=== PATIENT | female | born 1995 | race African-American/Black ===

== ENCOUNTER 2016-12-07 21:07 | Emergency (ER) | payer OTHER ==
[2016-12-07 21:34] VITALS: RESP 20
--- NOTE | 2016-12-07 21:52 | ED ---
General Adult HPI - General Chief complaint: Neck Pain/Injury Stated complaint: neck pain Time Seen by Provider: 12/07/16 21:44 Source: patient, RN notes reviewed Mode of arrival: ambulatory Limitations: no limitations - History of Present Illness Initial comments: This is a 21-year-old female who presents with left shoulder pain. Patient states she was cracking her neck yesterday with her right hand and when she rotated her head to the right she felt pain in the left collarbone. Patient denies any neck pain. Patient states the pain is worse with moving her left upper extremity. Patient denies any numbness/weakness or tingling. Patient has been taking Motrin 800 for the pain. Patient denies any recent fever, chills , shortness breath, chest pain, abdominal pain, nausea/vomiting/diarrhea, back pain, numbness, tingling, hematuria, headache, or visual changes, or any other complaints. - Related Data Previous Rx's Medication Instructions Recorded Cyclobenzaprine [Flexeril] 5 mg PO HS 3 Days 12/07/16 Allergies Allergy/AdvReac Type Severity Reaction Status Date / Time pollen extracts Allergy Swelling Verified 12/07/16 21:34 dust Allergy Swelling Uncoded 12/07/16 21:34 pet hair Allergy Anaphylaxis Uncoded 12/07/16 21:34 Review of Systems ROS Statement: Those systems with pertinent positive or pertinent negative responses have been documented in the HPI. ROS Other: All systems not noted in ROS Statement are negative. Past Medical History Past Medical History: Asthma Additional Past Medical History / Comment(s): concussion History of Any Multi-Drug Resistant Organisms: None Reported Past Surgical History: No Surgical Hx Reported Past Psychological History: Bipolar, Depression Smoking Status: Never smoker Past Alcohol Use History: None Reported Past Drug Use History: Marijuana General Exam - General Exam Comments Initial Comments: General: The patient is awake and alert, in no distress, and does not appear acutely ill. Neck: Patient has no cervical midline tenderness and no pain with rotation or flexion/extension of the neck. The neck is supple, there is no JVD. Cardiovascular: There is a regular rate and rhythm. No murmur, rub or gallop is appreciated. Respiratory: Lungs are clear to auscultation, respirations are non-labored, breath sounds are equal. No wheezes, stridor, rales, or rhonchi. Musculoskeletal: There is tenderness to palpation over the sternal and of the clavicle, there is generalized tenderness to the left shoulder. There is no erythema, swelling or ecchymosis. Patient is able to abduct and forward flex the left upper extremity but this is limited due to pain. Strength is 5/5 and Sensation intact. Radial pulses 2+ bilaterally. Capillary refill is normal at less than 2 seconds. Neurological: A&O x 3. CN II-XII intact, There are no obvious motor or sensory deficits. Coordination appears grossly intact. Speech is normal. Skin: Skin is warm and dry and no rashes or lesions are noted. Psychiatric: Normal mood and affect. Limitations: no limitations Course Vital Signs 12/07/16 12/07/16 21:32 22:31 Temperature 98.1 F 98.2 F Pulse Rate 71 78 Respiratory 20 20 Rate Blood Pressure 133/87 129/70 O2 Sat by Pulse 100 97 Oximetry Medical Decision Making - Medical Decision Making This is a 21-year-old female presents with left shoulder pain after cracking her neck yesterday. On physical exam patient has no cervical midline tenderness and no pain with rotation or flexion/extension of the neck. There is tenderness to palpation over the sternal and of the clavicle, there is generalized tenderness to the left shoulder. There is no erythema, swelling or ecchymosis. Patient is able to abduct and forward flex the left upper extremity but this is limited due to pain. Strength is 5/5 and Sensation intact. Radial pulses 2+ bilaterally. Capillary refill is normal at less than 2 seconds. An x-ray of the left shoulder was done and reviewed showing: Negative left shoulder exam. Reported by Dr. Ellis. I discussed the results with patient. I discussed that the entire sternal end of the clavicle was not visualized on the shoulder x-ray. Patient was offered a clavicular x- ray at this time but patient refused. I discussed that this is most likely a muscle strain. I discussed continuation of Motrin and Tylenol. I discussed the patient will be given a prescription for Flexeril. I discussed sedation effects. I discussed heating pads. Patient was given oral Motrin in the EC. I discussed return parameters. Discussed that patient should follow up with PCP in one to 2 days or return to the [facility] for any worsening symptoms or for any further concerns. Patient was receptive to this plan and patient will be discharged home. Disposition Clinical Impression: Muscle strain Disposition: HOME SELF-CARE Instructions: Cervical Strain (ED) Additional Instructions: Please continue Motrin and Tylenol as needed for pain. Please use heating pads to the area. Please use Flexeril as prescribed. Please do not drink alcohol or drive with taking Flexeril as a community drowsy.Please use medication as discussed. Please follow-up with family doctor in the next 2 days of symptoms have not improved. Please return to emergency room if the symptoms increase or worsen or for any other concerns. Prescriptions: Cyclobenzaprine [Flexeril] 5 mg PO HS 3 Days Referrals: None,Stated [Primary Care Provider] - 1-2 days Suri Vera MD [STAFF PHYSICIAN] - 1-2 days Dashawn Melgoza MD [STAFF PHYSICIAN] - 1-2 days Time of Disposition: 22:15
[2016-12-07] MEDS ORDERED: IBUPROFEN 800 MG TAB PO STA (21:56)
--- NOTE | 2016-12-07 22:05 | XR ---
EXAMINATION TYPE: XR shoulder complete LT DATE OF EXAM: 12/07/2016 10:02 PM COMPARISON: NONE HISTORY: Shoulder pain TECHNIQUE: 3 views FINDINGS: I see no fracture nor dislocation. Soft tissues appear normal. There are no pathologic calc ifications. IMPRESSION: Negative left shoulder exam.
[2016-12-07 22:32] VITALS: BP 129/70; PULSE 78; TEMP 98.2
== END 2016-12-07 22:32 | disposition home or self-care (01) ==
LOC: EC 21:07
DX: S46.912A Strain of unspecified muscle, fascia and tendon at shoulder and upper arm level, left arm, initial encounter (principal); X58.XXXA Exposure to other specified factors, initial encounter; J30.81 Allergic rhinitis due to animal (cat) (dog) hair and dander; J30.1 Allergic rhinitis due to pollen; J30.89 Other allergic rhinitis
CPT/HCPCS: 99283

== ENCOUNTER 2017-01-11 11:25 | Emergency (ER) | payer OTHER ==
[2017-01-11 11:36] VITALS: RESP 18
[2017-01-11] MEDS ORDERED: SODIUM CHLORIDE 0.9% 1,000 ML IV STA ×2 (12:08)
[2017-01-11] MEDS ORDERED: METOCLOPRAMIDE 5 MG/ML 2 ML VIAL IVP STA (12:08)
[2017-01-11 12:36] LABS: Basophils % (A) 1 %; CH 27.6; CHCM 31.7; Eosinophils # (A) 0.2 k/uL (0-0.7); Eosinophils % (A) 3 %; HCT 38.6 % (34.0-46.0); HDW 2.32; HGB 12.1 gm/dL (11.4-16.0); Luc # (Auto) 0.16; Luc % (Auto) 2; Lymphocytes # (A) 2.5 k/uL (1.0-4.8); Lymphocytes % (A) 36 %; MCH 27.5 pg (25.0-35.0); MCHC 31.4 g/dL (31.0-37.0); MCV 87.4 fL (80.0-100.0); Mean Platelet Volume 7.2; Monocytes # (A) 0.2 k/uL (0-1.0); Monocytes % (A) 3 %; Neutrophils # (A) 3.7 k/uL (1.3-7.7); Neutrophils % (A) 55 %; RBC 4.42 m/uL (3.80-5.40); RDW 14.8 % (11.5-15.5); WBC 6.8 k/uL (3.8-10.6); WBC (Perox) 6.99
[2017-01-11 12:47] LABS: ALT 26 U/L (9-52); AST 16 U/L (14-36); Alkaline Phosphatase 77 U/L (38-126); Amylase 52 U/L (30-110); Anion Gap 11 mmol/L; Blood Urea Nitrogen 14 mg/dL (7-17); Calcium 9.8 mg/dL (8.4-10.2); Carbon Dioxide 25 mmol/L (22-30); Chloride 104 mmol/L (98-107); Glucose 101 mg/dL (74-99); Non-African American GFR(MDRD) >60 (>60 ml/min/1.73 sqM); Potassium 4.7 mmol/L (3.5-5.1); Sodium 140 mmol/L (137-145); Total Bilirubin 0.3 mg/dL (0.2-1.3); Total Protein 7.4 g/dL (6.3-8.2)
[2017-01-11 13:10] LABS: Appearance,Urine Clear (Clear); Bacteria,Urine Rare /hpf; Bilirubin,Urine Negative (Negative); Glucose,Urine (UA) Negative (Negative); Ketones,Urine Negative (Negative); Leukocyte Esterase,Urine Moderate (Negative); Mucus,Urine Rare /hpf; Nitrite,Urine Negative (Negative); Particle Count 3345; Protein,Urine Negative (Negative); RBC,Urine 1 /hpf (0-5); Specific Gravity,Urine 1.023 (1.001-1.035); Squamous Epithelial Cell,Urine 2 /hpf (0-4); UA Billing (MACRO vs. MICRO) MICRO; Urobilinogen,Urine <2.0 mg/dL (<2.0); WBC,Urine 2 /hpf (0-5)
[2017-01-11] MEDS ORDERED: ACETAMINOPHEN TAB 500 MG TAB PO STA (13:14)
--- NOTE | 2017-01-11 13:24 | ED ---
General Adult HPI - General Chief complaint: Recheck/Abnormal Lab/Rx Stated complaint: female gu/allergic reaction, vomiting Time Seen by Provider: 01/11/17 12:03 Source: patient Mode of arrival: ambulatory Limitations: no limitations - History of Present Illness Initial comments: This 21-year-old Afro-Dominican female presents with the complaint of nausea and vomiting which is been present for last 3 days. She denies any known fever but does present with a temperature of 100.6. She does complain of some vaginal irritation for the past couple of days. She denies any actual vaginal discharge. She is sexually active. She is unsure if she is . She relates that she was checked for some sexually transmitted diseases somewhat recently. She has had intercourse since and is unsure if she could have a STD. She denies any abdominal pain or pelvic pain. She denies any chest pain or shortness of breath. She denies any nausea vomiting diarrhea or constipation. No other complaints or modifying factors. - Related Data Home Medications Medication Instructions Recorded Confirmed Citalopram Hydrobromide 20 mg PO DAILY 01/11/17 01/11/17 Previous Rx's Medication Instructions Recorded Doxycycline Hyclate [Vibramycin] 100 mg PO BID #28 cap 01/11/17 Fluconazole [Diflucan] 150 mg PO ONCE #2 tab 01/11/17 Ondansetron [Zofran ODT] 8 mg PO Q8HR PRN #12 tab 01/11/17 metroNIDAZOLE [Flagyl] 500 mg PO BID #28 tab 01/11/17 Allergies Allergy/AdvReac Type Severity Reaction Status Date / Time pollen extracts Allergy Swelling Verified 01/11/17 11:52 dust Allergy Swelling Uncoded 01/11/17 11:32 pet hair Allergy Anaphylaxis Uncoded 01/11/17 11:32 Review of Systems ROS Statement: Those systems with pertinent positive or pertinent negative responses have been documented in the HPI. ROS Other: All systems not noted in ROS Statement are negative. Past Medical History Past Medical History: Asthma Additional Past Medical History / Comment(s): concussion History of Any Multi-Drug Resistant Organisms: None Reported Past Surgical History: No Surgical Hx Reported Past Psychological History: Bipolar, Depression Smoking Status: Never smoker Past Alcohol Use History: None Reported Past Drug Use History: Marijuana General Exam - General Exam Comments Initial Comments: GENERAL: The patient is well nourished and well hydrated. VITAL SIGNS: Heart rate, blood pressure, respiratory rate reviewed as recorded in nurse's notes. EYES: Pupils are round and reactive. Extraocular movements are intact. No conjunctival / lid redness or swelling. ENT: No external evidence of injury, swelling, or ecchymosis. Airway is patent. Throat is clear. NECK: Nontender. No swelling or evidence of injury. No subcutaneous emphysema. Trachea is midline. No thyroid mass. HEART: Regular rate and rhythm. Good peripheral pulses. LUNGS/CHEST: Breath sounds clear and equal bilaterally. No rales, rhonchi, or wheezes. No ecchymosis, subcutaneous emphysema, or tenderness. ABDOMEN: Abdomen soft without tenderness. No palpable masses or organomegaly. No peritoneal signs. No abdominal wall swelling or ecchymosis. EXTREMITIES: No extremity tenderness. Normal muscle tone and function. No thoracolumbar tenderness. NEUROLOGIC: Sensation is grossly intact. Cranial nerve exam reveals face is symmetrical, tongue is midline, speech is clear. SKIN: No abrasions or ecchymosis is noted. No induration or masses noted. PSYCHIATRIC: Alert and oriented. Appropriate behavior and judgment. Pelvic exam: There is a mild clear discharge noted. There is no perineal lesions. There is possible mild tenderness to the uterus and adnexa. There is a negative chandelier sign. Limitations: no limitations Course Vital Signs 01/11/17 11:32 Temperature 100.6 F H Pulse Rate 79 Respiratory 18 Rate Blood Pressure 115/72 O2 Sat by Pulse 97 Oximetry Medical Decision Making - Medical Decision Making The patient was seen and examined. All diagnostics were reviewed. She receives IV fluid hydration as well as some Reglan. She is feeling improved on recheck. Pelvic exam was completed and cultures are taken and are pending. The urine is negative. The remainder of labs are essentially within normal limits. The urine does show some yeast so the possibility of a yeast vaginitis is possible. The possibility of a pelvic inflammatory disease is possible as well. It is felt as though she would benefit from treatment in this regard. She is given 250 mg Rocephin IV. - Lab Data Result diagrams: 01/11/17 12:18 01/11/17 12:18 Lab Results 01/11/17 01/11/17 01/11/17 Range/Units 12:18 12:18 13:00 WBC 6.8 (3.8-10.6) k/uL RBC 4.42 (3.80-5.40) m/uL Hgb 12.1 (11.4-16.0) gm/dL Hct 38.6 (34.0-46.0) % MCV 87.4 (80.0-100.0) fL MCH 27.5 (25.0-35.0) pg MCHC 31.4 (31.0-37.0) g/dL RDW 14.8 (11.5-15.5) % Plt Count 269 (150-450) k/uL Neutrophils % 55 % Lymphocytes % 36 % Monocytes % 3 % Eosinophils % 3 % Basophils % 1 % Neutrophils # 3.7 (1.3-7.7) k/uL Lymphocytes # 2.5 (1.0-4.8) k/uL Monocytes # 0.2 (0-1.0) k/uL Eosinophils # 0.2 (0-0.7) k/uL Basophils # 0.0 (0-0.2) k/uL Sodium 140 (137-145) mmol/L Potassium 4.7 (3.5-5.1) mmol/L Chloride 104 (98-107) mmol/L Carbon Dioxide 25 (22-30) mmol/L Anion Gap 11 mmol/L BUN 14 (7-17) mg/dL Creatinine 0.90 (0.52-1.04) mg/dL Est GFR (MDRD) Af Amer >60 (>60 ml/min/1.73 sqM) Est GFR (MDRD) Non-Af >60 (>60 ml/min/1.73 sqM) Glucose 101 H (74-99) mg/dL Calcium 9.8 (8.4-10.2) mg/dL Total Bilirubin 0.3 (0.2-1.3) mg/dL AST 16 (14-36) U/L ALT 26 (9-52) U/L Alkaline Phosphatase 77 (38-126) U/L Total Protein 7.4 (6.3-8.2) g/dL Albumin 4.1 (3.5-5.0) g/dL Amylase 52 (30-110) U/L Lipase 95 (23-300) U/L Urine Color Urine Appearance (Clear) Urine pH (5.0-8.0) Ur Specific [place] (1.001-1.035) Urine Protein (Negative) Urine Glucose (UA) (Negative) Urine Ketones (Negative) Urine Blood (Negative) Urine Nitrite (Negative) Urine Bilirubin (Negative) Urine Urobilinogen (<2.0) mg/dL Ur Leukocyte Esterase (Negative) Urine RBC (0-5) /hpf Urine WBC (0-5) /hpf Ur Squamous Epith Cells (0-4) /hpf Urine Bacteria (None) /hpf Urine Mucus (None) /hpf Urine Yeast (Budding) (None) /hpf Urine HCG, Qual Not Detected (Not Detectd) 01/11/17 Range/Units 13:00 WBC (3.8-10.6) k/uL RBC (3.80-5.40) m/uL Hgb (11.4-16.0) gm/dL Hct (34.0-46.0) % MCV (80.0-100.0) fL MCH (25.0-35.0) pg MCHC (31.0-37.0) g/dL RDW (11.5-15.5) % Plt Count (150-450) k/uL Neutrophils % % Lymphocytes % % Monocytes % % Eosinophils % % Basophils % % Neutrophils # (1.3-7.7) k/uL Lymphocytes # (1.0-4.8) k/uL Monocytes # (0-1.0) k/uL Eosinophils # (0-0.7) k/uL Basophils # (0-0.2) k/uL Sodium (137-145) mmol/L Potassium (3.5-5.1) mmol/L Chloride (98-107) mmol/L Carbon Dioxide (22-30) mmol/L Anion Gap mmol/L BUN (7-17) mg/dL Creatinine (0.52-1.04) mg/dL Est GFR (MDRD) Af Amer (>60 ml/min/1.73 sqM) Est GFR (MDRD) Non-Af (>60 ml/min/1.73 sqM) Glucose (74-99) mg/dL Calcium (8.4-10.2) mg/dL Total Bilirubin (0.2-1.3) mg/dL AST (14-36) U/L ALT (9-52) U/L Alkaline Phosphatase (38-126) U/L Total Protein (6.3-8.2) g/dL Albumin (3.5-5.0) g/dL Amylase (30-110) U/L Lipase (23-300) U/L Urine Color Yellow Urine Appearance Clear (Clear) Urine pH 6.0 (5.0-8.0) Ur Specific [place] 1.023 (1.001-1.035) Urine Protein Negative (Negative) Urine Glucose (UA) Negative (Negative) Urine Ketones Negative (Negative) Urine Blood Negative (Negative) Urine Nitrite Negative (Negative) Urine Bilirubin Negative (Negative) Urine Urobilinogen <2.0 (<2.0) mg/dL Ur Leukocyte Esterase Moderate H (Negative) Urine RBC 1 (0-5) /hpf Urine WBC 2 (0-5) /hpf Ur Squamous Epith Cells 2 (0-4) /hpf Urine Bacteria Rare H (None) /hpf Urine Mucus Rare H (None) /hpf Urine Yeast (Budding) Rare H (None) /hpf Urine HCG, Qual (Not Detectd) Disposition Clinical Impression: Vaginal irritation, Nausea and vomiting, Fever, Pelvic inflammatory disease Disposition: HOME SELF-CARE Condition: Good Instructions: Vaginitis (ED), Acute Nausea and Vomiting (ED), Fever in Adults ( ED) Additional Instructions: Please follow-up with your pelvic exam cultures in approximately 3 days with your primary doctor. Prescriptions: Doxycycline Hyclate [Vibramycin] 100 mg PO BID #28 cap Fluconazole [Diflucan] 150 mg PO ONCE #2 tab Ondansetron [Zofran ODT] 8 mg PO Q8HR PRN #12 tab PRN Reason: Nausea metroNIDAZOLE [Flagyl] 500 mg PO BID #28 tab Referrals: None,Stated [Primary Care Provider] - 01/14/17 Time of Disposition: 13:36
[2017-01-11 14:04] VITALS: BP 100/75; PULSE 75; TEMP 98
== END 2017-01-11 14:04 | disposition home or self-care (01) ==
LOC: EC 11:25
DX: N73.9 Female pelvic inflammatory disease, unspecified (principal); J30.1 Allergic rhinitis due to pollen; J30.89 Other allergic rhinitis; J30.81 Allergic rhinitis due to animal (cat) (dog) hair and dander; F32.9 Major depressive disorder, single episode, unspecified; Z79.899 Other long term (current) drug therapy
CPT/HCPCS: 99283; 96365; 96375; 96361; 36415; 80053; 87591; 87491; 82150; 83690; 85025; 81001; 81025; 87808; J2765; J0696

== ENCOUNTER → 2017-02-04 | Outpatient (CLI) | payer OTHER ==
[2017-02-04 19:02] LABS: Appearance,Urine Clear (Clear); Bilirubin,Urine Negative (Negative); Glucose,Urine (UA) Negative (Negative); Ketones,Urine Negative (Negative); Leukocyte Esterase,Urine Negative (Negative); Nitrite,Urine Negative (Negative); PH, Urine 5.5 (5.0-8.0); Protein,Urine Negative (Negative); Specific Gravity,Urine 1.018 (1.001-1.035); UA Billing (MACRO vs. MICRO) CHEM; Urobilinogen,Urine <2.0 mg/dL (<2.0)
--- NOTE | 2017-02-05 08:22 | WWHP ---
DATE OF SERVICE: 02/04/2017 CHIEF COMPLAINT: Patient is here for her routine gynecologic exam. HPI: This is a 21-year-old G1, P0-0-1-0 with an LMP of 01/20/2017. She states she would like to get and has been not using anything for control for approximately 2 years. The patient was on Depo-Provera until mid-year in 2014. She was amenorrheic while she was on Depo-Provera as well as for the next 6 months after her last injection. The patient states her periods have been very regular after that until last month when she was about a week late. Her test last month was negative. PAST MEDICAL HISTORY: Anemia, asthma, and depression. MEDICATIONS: 1. Ventolin HFA Inhaler p.r.n. 2. Celexa 20 mg daily. 3. vitamins daily. ALLERGIES: No known drug allergies. PAST SURGICAL HISTORY: Voluntary termination of 2011. Past OB history: Voluntary termination of 2011 and she states she was about 3 months . 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 She does have a history of Chlamydia and was treated in 2015. She has no other history of STDs. SOCIAL HISTORY: She denies tobacco and alcohol use. She states she has used marijuana in the past but this was infrequent. She denies any other drug use. She has been with her current boyfriend since 2010 and does not live with him. She has had two other sexual partners in her lifetime. She attends [employer] and works at [employer]. FAMILY HISTORY: Grandmother and great grandfather had heart disease. Grandmother had diabetes and several cousins have diabetes. Mother has schizophrenia and is an alcoholic, sister had some type of nasal cancer. REVIEW OF SYSTEMS: She believes she has gained about 30 pounds over the last year and states this may be related to her depression. She denies respiratory or cardiac problems. GI: She has had frequent bowel movements since eating at a [place] restaurant a couple of weeks ago. She has bowel movements up to 3 to 4 times per day. PHYSICAL EXAM: Blood pressure 117/58. Height 5 feet 4 inches. Weight 278 pounds. Temperature 97.9, pulse 81. This a well-developed, heavyset Black female who is alert and oriented x3 in no acute distress. HEENT is within normal limits. NECK: Supple without mass or thyromegaly. CHEST AND LUNGS: Clear to auscultation. HEART: Regular rate and rhythm. Breasts are without mass or discharge. Axillary exam is negative for adenopathy. BACK: Negative for CVA tenderness. ABDOMEN: Obese, soft, nontender, without palpable masses. PELVIC EXAM: Normal external genitalia. Cervix and vagina appear normal. There is no unusual discharge. There is no cervical motion tenderness. The uterus is midposition, nongravid size and nontender but there is some mid pelvic tenderness in the area of the bladder or just above the bladder. There are no palpable adnexal masses or tenderness. Rectal exam was deferred. EXTREMITIES: Nontender. IMPRESSION: 1. A 21-year-old female who would like to become who has been off of Depo-Provera for approximately 2 years without actively trying to prevent since then. 2. The patient may not have been able to get for many months because of the Depo-Provera injection. 3. Mild mid pelvic tenderness, which was not consistently elicited on examination. There are no pelvic masses and no cervical motion tenderness. I doubt pelvic inflammatory disease. Differential diagnosis will also include urinary tract infection and gastrointestinal tract tenderness given that she has had more frequent bowel movements recently. PLAN: 1. Pap smear was performed. 2. Self-breast examination was discussed. 3. GC and Chlamydia testing from the cervix has been obtained. 4. UA with C&S has been obtained. 5. The patient will be scheduled for pelvic ultrasound. 6. I have recommended that she continue a daily multivitamin with folic acid. 7. I have discussed with the patient, how Depo-Provera is a long acting control method and that some people cannot get for up to 1 to 1-1/2 years after discontinuing Depo-Provera. She will continue to attempt and if she is unsuccessful in the next six months or so, consider referral for infertility testing. 8. She will also return in one year.
== END | disposition home or self-care (01) ==
LOC: WWCWWP 12:54
PROVIDERS: ATTEND Obstetrics & Gynecology
DX: Z11.3 Encounter for screening for infections with a predominantly sexual mode of transmission (principal); R10.2 Pelvic and perineal pain
CPT/HCPCS: 81003; 87086; 87491; 87591

== ENCOUNTER 2017-03-04 09:06 | Emergency (ER) | payer OTHER ==
[2017-03-04] MEDS ORDERED: IBUPROFEN 600 MG TAB PO STA (09:42)
[2017-03-04] MEDS ORDERED: DEXAMETHASONE SOD PHOSPHATE 10 MG/ML 1 ML VIAL IM STA (09:42)
[2017-03-04] MEDS ORDERED: AMOXICILLIN 500MG STARTER PACK 3 CAP BTL PO STA (09:42)
[2017-03-04] MEDS ORDERED: ACETAMINOPHEN TAB 500 MG TAB PO STA (09:42)
--- NOTE | 2017-03-04 09:59 | ED ---
General Adult HPI - General Chief complaint: ENT Stated complaint: throat pain Time Seen by Provider: 03/04/17 09:18 Source: patient, RN notes reviewed Mode of arrival: ambulatory Limitations: no limitations - History of Present Illness Initial comments: Patient is a 21-year-old female who presents emergency room today with chief complaint of sore throat. She does admit that symptoms started 4 days ago. She does admit that this morning has become more painful when she swallows. She states she has been able tolerate her saliva. She does admit that she's tried Tylenol Motrin but did not take anything today. she admits that she has seen some white patches the back of her throat. She denies any other complaints or symptoms at this time. Patient denies any recent shortness of breath, chest pain, back pain, abdominal pain, nausea or vomiting, numbness or tingling, dysuria or hematuria, constipation or diarrhea, headaches or visual changes, or any other complaints. - Related Data Home Medications Medication Instructions Recorded Confirmed Citalopram Hydrobromide 20 mg PO HS 01/11/17 03/04/17 [Citalopram HBr] Hab-Yqen-[id number] Acid 1 cap PO HS 03/04/17 03/04/17 [-U Capsule (formulary)] Previous Rx's Medication Instructions Recorded Amoxicillin 500 mg PO Q8H 10 Days 03/04/17 Ibuprofen [Motrin] 600 mg PO Q6HR PRN #40 day 03/04/17 Allergies Allergy/AdvReac Type Severity Reaction Status Date / Time chocolate flavor Allergy Unknown Verified 03/04/17 09:33 pollen extracts Allergy Swelling Verified 03/04/17 09:13 dust Allergy Swelling Uncoded 03/04/17 09:13 pet hair Allergy Anaphylaxis Uncoded 03/04/17 09:13 Review of Systems ROS Statement: Those systems with pertinent positive or pertinent negative responses have been documented in the HPI. ROS Other: All systems not noted in ROS Statement are negative. Past Medical History Past Medical History: Asthma Additional Past Medical History / Comment(s): concussion History of Any Multi-Drug Resistant Organisms: None Reported Past Surgical History: No Surgical Hx Reported Past Psychological History: Bipolar, Depression Smoking Status: Never smoker Past Alcohol Use History: None Reported Past Drug Use History: None Reported General Exam - General Exam Comments Initial Comments: General: The patient is awake and alert, in no distress, and does not appear acutely ill. Eye: Pupils are equal, round and reactive to light, extra-ocular movements are intact. No nystagmus. There is normal conjunctiva bilaterally. No signs of icterus. Ears, nose, mouth and throat: There are moist mucous membranes and no oral lesions. patient does have positive exudate. 2+ tonsils. Uvula midline. No swelling appreciated greater on one side than the next. No sign for an abscess. Patient tolerating secretions and swallows without difficulty. Neck: The neck is supple, there is no tenderness or JVD. Cardiovascular: There is a regular rate and rhythm. No murmur, rub or gallop is appreciated. Respiratory: Lungs are clear to auscultation, respirations are non-labored, breath sounds are equal. No wheezes, stridor, rales, or rhonchi. Gastrointestinal: Soft, non-distended, non-tender abdomen without masses or organomegaly noted. There is no rebound or guarding present. No CVA tenderness. Bowel sounds are unremarkable. Musculoskeletal: Normal ROM, no tenderness. Strength 5/5. Sensation intact. Pulses equal bilaterally 2+. Neurological: A&O x 3. CN II-XII intact, There are no obvious motor or sensory deficits. Coordination appears grossly intact. Speech is normal. Skin: Skin is warm and dry and no rashes or lesions are noted. Psychiatric: Cooperative, appropriate mood & affect, normal judgment. Limitations: no limitations Course Vital Signs 03/04/17 09:09 Temperature 100.1 F H Pulse Rate 96 Respiratory 22 Rate Blood Pressure 136/73 O2 Sat by Pulse 98 Oximetry Medical Decision Making - Medical Decision Making Patient's uvula midline. Swallows without difficulty. Has tolerated by mouth Tylenol Motrin. Given shot of Decadron here in the emergency room. Case discussed with attending physician Dr. Tijerina. This time patient will be started on antibiotics cover for strep infection advised close follow-up return if any symptoms increase or worsen. She states understanding and is in agreement. Disposition Clinical Impression: Acute pharyngitis Disposition: HOME SELF-CARE Condition: Good Instructions: Strep Throat (ED) Additional Instructions: Please use medication as discussed. Please follow-up with family doctor in the next 2 days of symptoms have not improved. Please return to emergency room if the symptoms increase or worsen or for any other concerns. Prescriptions: Amoxicillin 500 mg PO Q8H 10 Days Ibuprofen [Motrin] 600 mg PO Q6HR PRN #40 day PRN Reason: Pain Referrals: Nonstaff,Physician [REFERRING] - 1-2 days Time of Disposition: 10:51
[2017-03-04 11:17] VITALS: BP 130/70; PULSE 64; RESP 16; TEMP 101.4
== END 2017-03-04 11:16 | disposition home or self-care (01) ==
LOC: EC 09:06
DX: J02.9 Acute pharyngitis, unspecified (principal); F32.9 Major depressive disorder, single episode, unspecified; Z91.048 Other nonmedicinal substance allergy status; Z91.018 Allergy to other foods; Z79.899 Other long term (current) drug therapy
CPT/HCPCS: 99282; 96372; J1100

== ENCOUNTER → 2017-04-02 | Outpatient (CLI) | payer OTHER ==
--- NOTE | 2017-04-02 17:14 | US ---
EXAMINATION TYPE: US transvaginal DATE OF EXAM: 04/02/2017 COMPARISON: NONE CLINICAL HISTORY: R10.2 Pelvic Pain, R68.89 Abc Pelvic Exam. TECHNIQUE: Transvaginal (TV) Date of LMP: unknown EXAM MEASUREMENTS: Uterus: 6.5 x 3.2 x 4.6 cm Endometrial Stripe: 0.6 cm Right Ovary: 2.8 x 2.1 x 2.0 cm Left Ovary: 3.0 x 1.6 x 1.6 cm Patient unable to fill her bladder. 1. Uterus: small amount of free fluid adjacent to uterus , uterus wnl 2. Endometrium: unknown LMP, otherwise wnl 3. Right Ovary: wnl 4. Left Ovary: wnl 5. Bilateral Adnexa: wnl 6. Posterior cul-de-sac: wnl IMPRESSION: NORMAL PELVIC ULTRASOUND.
== END | disposition home or self-care (01) ==
LOC: RADUSWWP 15:45
PROVIDERS: ATTEND Obstetrics & Gynecology
DX: R10.2 Pelvic and perineal pain (principal); R68.89 Other general symptoms and signs
CPT/HCPCS: 76830

== ENCOUNTER 2017-11-11 15:42 | Emergency (ER) | payer SELFPAY ==
[2017-11-11] MEDS ORDERED: diphenhydrAMINE 50 MG/ML 1 ML VIAL IVP STA (18:42)
[2017-11-11] MEDS ORDERED: SODIUM CHLORIDE 0.9% 1,000 ML IV ONE (18:42)
[2017-11-11] MEDS ORDERED: METOCLOPRAMIDE 5 MG/ML 2 ML VIAL IVP STA (18:42)
--- NOTE | 2017-11-11 18:43 | ED ---
General Adult HPI - General Chief complaint: Nausea/Vomiting/Diarrhea Stated complaint: vomiting-early Time Seen by Provider: 11/11/17 18:25 Source: patient Mode of arrival: ambulatory Limitations: no limitations - History of Present Illness Initial comments: Patient is a female, 22 years of age who presents with a chief complaint of nausea and vomiting. The patient is 7 weeks and states that she has been nauseated throughout the duration of her . She was sent home from work today secondary to vomiting. The patient cannot identify any inciting incidences other than the . There are no aggravating or alleviating factors. Timing is intermittent. Patient was asked to be evaluated by her human resources department. - Related Data Home Medications Medication Instructions Recorded Confirmed Qca-Fkfm-Qqila Acid 1 cap PO HS 03/04/17 11/11/17 [-U Capsule (formulary)] Previous Rx's Medication Instructions Recorded Metoclopramide HCl [Reglan] 10 mg PO TID #30 tablet 11/11/17 Allergies Allergy/AdvReac Type Severity Reaction Status Date / Time chocolate flavor Allergy Unknown Verified 11/11/17 19:10 pollen extracts Allergy Swelling Verified 11/11/17 19:10 dust Allergy Swelling Uncoded 11/11/17 16:21 pet hair Allergy Anaphylaxis Uncoded 11/11/17 16:21 Review of Systems ROS Statement: Those systems with pertinent positive or pertinent negative responses have been documented in the HPI. ROS Other: All systems not noted in ROS Statement are negative. Gastrointestinal: Reports: nausea, vomiting Past Medical History Past Medical History: Asthma Additional Past Medical History / Comment(s): concussion History of Any Multi-Drug Resistant Organisms: None Reported Past Surgical History: No Surgical Hx Reported Past Psychological History: Bipolar, Depression Smoking Status: Never smoker Past Alcohol Use History: None Reported Past Drug Use History: None Reported General Exam Limitations: no limitations General appearance: alert, in no apparent distress Head exam: Present: atraumatic, normocephalic Eye exam: Present: normal appearance ENT exam: Present: mucous membranes moist Respiratory exam: Present: normal lung sounds bilaterally. Absent: respiratory distress Cardiovascular Exam: Present: regular rate, normal rhythm GI/Abdominal exam: Present: soft. Absent: distended, tenderness Rectal exam: Present: deferred Neurological exam: Present: alert, oriented X3 Psychiatric exam: Present: normal affect, normal mood Skin exam: Present: warm, dry, intact Course Vital Signs 11/11/17 16:18 Temperature 98.9 F Pulse Rate 88 Respiratory 20 Rate Blood Pressure 117/56 O2 Sat by Pulse 100 Oximetry Medical Decision Making - Medical Decision Making Patient is a 22-year-old female presents with a chief complaint of nausea and vomiting. The patient is 7 weeks . Patient states that this is been relatively constant for her over the length of her and today she was sent home from work. Patient denies any other symptoms including fever, chills , shortness of breath, chest pain, dysuria, vaginal bleeding, or vaginal discharge. Patient will be evaluated with basic labs and a quantitative beta hCG. Lab evaluation of this patient is unremarkable. HCG is just over 28,000. 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 Patient is feeling improved after a dose of Reglan and Benadryl. She will be prescribed Reglan for outpatient use and instructed to follow up with primary care and OB. She is instructed to return to the emergency department 12-24 hours her symptoms are worse or new symptoms arise. At this time, I do not recommend any work restrictions for the patient, unless she is unable to control her nausea. 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 - Lab Data Result diagrams: 11/11/17 18:49 11/11/17 18:49 Lab Results 11/11/17 11/11/17 11/11/17 Range/Units 18:49 18:49 18:49 WBC 7.7 (3.8-10.6) k/uL RBC 4.04 (3.80-5.40) m/uL Hgb 10.7 L (11.4-16.0) gm/dL Hct 33.9 L (34.0-46.0) % MCV 84.0 (80.0-100.0) fL MCH 26.5 (25.0-35.0) pg MCHC 31.6 (31.0-37.0) g/dL RDW 14.5 (11.5-15.5) % Plt Count 324 (150-450) k/uL Neutrophils % 61 % Lymphocytes % 33 % Monocytes % 3 % Eosinophils % 2 % Basophils % 0 % Neutrophils # 4.7 (1.3-7.7) k/uL Lymphocytes # 2.5 (1.0-4.8) k/uL Monocytes # 0.2 (0-1.0) k/uL Eosinophils # 0.2 (0-0.7) k/uL Basophils # 0.0 (0-0.2) k/uL Sodium 139 (137-145) mmol/L Potassium 4.0 (3.5-5.1) mmol/L Chloride 103 (98-107) mmol/L Carbon Dioxide 26 (22-30) mmol/L Anion Gap 10 mmol/L BUN 8 (7-17) mg/dL Creatinine 0.65 (0.52-1.04) mg/dL Est GFR (MDRD) Af Amer >60 (>60 ml/min/1.73 sqM) Est GFR (MDRD) Non-Af >60 (>60 ml/min/1.73 sqM) Glucose 103 H (74-99) mg/dL Calcium 9.6 (8.4-10.2) mg/dL HCG, Quant 31092.0 mIU/mL Urine Color Yellow Urine Appearance Clear (Clear) Urine pH 7.0 (5.0-8.0) Ur Specific Cooks 1.025 (1.001-1.035) Urine Protein Trace H (Negative) Urine Glucose (UA) Negative (Negative) Urine Ketones 1+ H (Negative) Urine Blood Negative (Negative) Urine Nitrite Negative (Negative) Urine Bilirubin Negative (Negative) Urine Urobilinogen 2.0 (<2.0) mg/dL Ur Leukocyte Esterase Negative (Negative) Disposition Clinical Impression: Hyperemesis gravidarum Disposition: HOME SELF-CARE Condition: Good Instructions: Acute Nausea and Vomiting (ED) Referrals: Suri Vera MD [STAFF PHYSICIAN] - 1-2 days Alejo Damon DO [Doctor of Osteopathic Medicine] - 1-2 days Catherine Dyer DO [Doctor of Osteopathic Medicine] - 1-2 days
[2017-11-11 18:59] LABS: Basophils % (A) 0 %; Eosinophils # (A) 0.2 k/uL (0-0.7); Eosinophils % (A) 2 %; HCT 33.9 % (34.0-46.0); HGB 10.7 gm/dL (11.4-16.0); Lymphocytes # (A) 2.5 k/uL (1.0-4.8); Lymphocytes % (A) 33 %; MCH 26.5 pg (25.0-35.0); MCHC 31.6 g/dL (31.0-37.0); Mean Platelet Volume 7.2; Monocytes # (A) 0.2 k/uL (0-1.0); Monocytes % (A) 3 %; Neutrophils # (A) 4.7 k/uL (1.3-7.7); Neutrophils % (A) 61 %; Platelet Count 324 k/uL (150-450); RBC 4.04 m/uL (3.80-5.40); RDW 14.5 % (11.5-15.5); WBC 7.7 k/uL (3.8-10.6)
[2017-11-11 19:01] LABS: Appearance,Urine Clear (Clear); Bilirubin,Urine Negative (Negative); Blood,Urine Negative (Negative); Color,Urine Yellow; Glucose,Urine (UA) Negative (Negative); Ketones,Urine 1+ (Negative); Leukocyte Esterase,Urine Negative (Negative); Nitrite,Urine Negative (Negative); Protein,Urine Trace (Negative); Specific Gravity,Urine 1.025 (1.001-1.035)
[2017-11-11 19:10] LABS: Anion Gap 10 mmol/L; Blood Urea Nitrogen 8 mg/dL (7-17); Calcium 9.6 mg/dL (8.4-10.2); Carbon Dioxide 26 mmol/L (22-30); Chloride 103 mmol/L (98-107); Glucose 103 mg/dL (74-99); Sodium 139 mmol/L (137-145)
[2017-11-11 20:56] VITALS: BP 123/76; PULSE 77; RESP 17; TEMP 97.9
== END 2017-11-11 20:57 | disposition home or self-care (01) ==
LOC: EC 15:42
DX: O21.0 Mild hyperemesis gravidarum (principal); Z3A.01 Less than 8 weeks gestation of pregnancy; Z91.048 Other nonmedicinal substance allergy status; Z79.899 Other long term (current) drug therapy
CPT/HCPCS: 99284; 96374; 96361; 36415; 80048; 85025; 81003; 84702; J2765

== ENCOUNTER 2018-01-07 08:52 | Emergency (ER) | payer OTHER ==
[2018-01-07 09:02] VITALS: RESP 18
--- NOTE | 2018-01-07 09:10 | ED ---
Upper Extremity HPI - General Chief Complaint: Extremity Injury, Upper Stated Complaint: Hand Lac Time Seen by Provider: 01/07/18 08:59 Source: patient, EMS, RN notes reviewed, old records reviewed Mode of arrival: EMS Limitations: no limitations - History of Present Illness Initial Comments: 20-year-old female presents or instruments due to complaint of left hand pain. She reports that she punched him year. She complains of a small laceration over the fifth digit. She states that she has swelling over her hand. She states that she cannot fully make a fist with her hand due to the pain. She denies any numbness or tingling to the hand or finger distal to the injury. She denies any other symptoms including chest pain, shortness of breath, nausea , vomiting, fevers, chills, abdominal pain, dysuria, hematuria, diarrhea. - Related Data Home Medications Medication Instructions Recorded Confirmed Fxk-Cvbl-Bsfuh Acid 1 cap PO DAILY 03/04/17 01/07/18 [-U Capsule (formulary)] Previous Rx's Medication Instructions Recorded Cephalexin [Keflex] 500 mg PO Q8HR #21 cap 01/07/18 Allergies Allergy/AdvReac Type Severity Reaction Status Date / Time chocolate flavor Allergy Unknown Verified 01/07/18 09:03 pollen extracts Allergy Swelling Verified 01/07/18 09:03 dust Allergy Swelling Uncoded 01/07/18 09:01 pet hair Allergy Anaphylaxis Uncoded 01/07/18 09:01 Review of Systems ROS Statement: Those systems with pertinent positive or pertinent negative responses have been documented in the HPI. ROS Other: All systems not noted in ROS Statement are negative. Past Medical History Past Medical History: Asthma Additional Past Medical History / Comment(s): concussion History of Any Multi-Drug Resistant Organisms: None Reported Past Surgical History: No Surgical Hx Reported Past Psychological History: Bipolar, Depression Smoking Status: Never smoker Past Alcohol Use History: None Reported Past Drug Use History: None Reported General Exam - General Exam Comments Initial Comments: This is a 22-year-old female. Alert and oriented. No distress. Limitations: no limitations General appearance: alert, in no apparent distress Head exam: Present: atraumatic, normocephalic, normal inspection Eye exam: Present: normal appearance, PERRL, EOMI. Absent: scleral icterus, conjunctival injection, periorbital swelling ENT exam: Present: normal exam, mucous membranes moist Neck exam: Present: normal inspection. Absent: tenderness, meningismus, lymphadenopathy Respiratory exam: Present: normal lung sounds bilaterally. Absent: respiratory distress, wheezes, rales, rhonchi, stridor Cardiovascular Exam: Present: regular rate, normal rhythm, normal heart sounds. Absent: systolic murmur, diastolic murmur, rubs, gallop, clicks GI/Abdominal exam: Present: soft, normal bowel sounds. Absent: distended, tenderness, guarding, rebound, rigid Extremities exam: Present: normal inspection, full ROM, normal capillary refill. Absent: tenderness, pedal edema, joint swelling, calf tenderness Left Elbow exam: Present: normal inspection, full ROM Forearm Wrist exam: Present: normal inspection, full ROM Hand Wrist exam: Present: tenderness (Patient has tenderness over the fifth met carpal.), swelling. Absent: normal inspection (Patient has a 17 m laceration over the dorsal aspect of the distal fifth metacarpal.), full ROM (Patient is unable to make a total fist to do the pain.) Course Vital Signs 01/07/18 08:59 Temperature 97.9 F Pulse Rate 78 Respiratory 18 Rate Blood Pressure 135/73 O2 Sat by Pulse 100 Oximetry Procedures - Incision & Drainage Site: hand (left hand at fifth metacarpal) Size (cm): 1 Anesthetic Used: lidocaine 1% Amount (mLs): 3 I&D Cleaning Method: Iodine Sterile Field Used?: Yes Scalpel Used: #11 Packing: Other (removed a small piece of glass ) Patient Tolerated Procedure: well Medical Decision Making - Medical Decision Making 22-year-old female presents emergency department today chief complaint of left hand laceration and swelling after she punched a mirror. Patient reports pain with range of motion of her fifth finger. She did have some swelling noted. Initial x-ray shows evidence of soft tissue foreign body. Sinusitis the area of the small laceration and was able to retrieve base small piece of glass. We re-x-rayed the hand after I removed the glass and there is no evidence of continued foreign body. She will have a small puncture wound at the site where the glass entered. I discussed we will keep this open and not suture it to make sure that there is no closing of the site for possibility of infection. We 'll start patient on a few days of Keflex due to the soft tissue injury. Discussed following up with primary care provider orthopedic if she has any other issues. Discussed warm soaks of the hand. Discussed keeping the wound covered. Patient are any reports that her tetanus is up-to-date. - Radiology Data Radiology results: report reviewed Anesthesias pressure dislocation. Soft tissue foreign body under the presumed site of laceration injury. Re-x-ray of the hand shows no evidence of soft tissue foreign body. Disposition Clinical Impression: Foreign body hand, Hand laceration Disposition: HOME SELF-CARE Condition: Good Instructions: Soft Tissue Foreign Body (ED) Additional Instructions: Patient advised to do warm soaks of the hand frequently. Allow the wound close on its own. Return to emergency department if any alarming signs or symptoms occur. Prescriptions: Cephalexin [Keflex] 500 mg PO Q8HR #21 cap Referrals: None,Stated [Primary Care Provider] - 1-2 days Suri Vera MD [STAFF PHYSICIAN] - 1-2 days Time of Disposition: 11:12
--- NOTE | 2018-01-07 09:38 | XR ---
EXAMINATION TYPE: XR hand complete LT DATE OF EXAM: 01/07/2018 CLINICAL HISTORY: Punch picture frame injury with pain swelling and laceration.. TECHNIQUE: Frontal, lateral and oblique images of the left hand are obtained. COMPARISON: None. FINDINGS: There is no acute fracture/dislocation evident in the left hand. The joint spaces in the l eft hand appear within normal limits. There are 1-2 punctate radiodense soft tissue foreign bodies ne ar region of fifth metacarpal head distal diaphysis seen on frontal and oblique images. IMPRESSION: There is no acute fracture or dislocation in the left hand. Soft tissue foreign body not ed presumed at site of laceration injury.
--- NOTE | 2018-01-07 11:11 | XR ---
EXAMINATION TYPE: XR hand complete LT DATE OF EXAM: 01/07/2018 CLINICAL HISTORY: Foreign body removal from laceration injury. TECHNIQUE: Frontal, lateral and oblique images of the left hand are obtained. COMPARISON: Left hand x-ray earlier today. FINDINGS: Overlying bandage material is seen. There is no acute fracture/dislocation evident in the l eft hand. The joint spaces in the left hand appear within normal limits. There is interval removal of punctate densities or soft tissue foreign body near level of fifth metacarpal head. IMPRESSION: Interval successful removal of soft tissue foreign bodies.
[2018-01-07 11:25] VITALS: BP 126/82; PULSE 84; TEMP 97.1
== END 2018-01-07 11:25 | disposition home or self-care (01) ==
LOC: EC 08:52
DX: O9A.219 Injury, poisoning and certain other consequences of external causes complicating pregnancy, unspecified trimester (principal); S61.422A Laceration with foreign body of left hand, initial encounter; Z91.018 Allergy to other foods; Z91.048 Other nonmedicinal substance allergy status; W25.XXXA Contact with sharp glass, initial encounter; W45.8XXA Other foreign body or object entering through skin, initial encounter; Z3A.00 Weeks of gestation of pregnancy not specified
CPT/HCPCS: 12041; 99284

== ENCOUNTER 2018-01-20 13:57 | Emergency (ER) | payer OTHER ==
[2018-01-20 14:12] VITALS: BP 127/85; PULSE 98; RESP 20; TEMP 98.3
--- NOTE | 2018-01-20 15:44 | ED ---
General Adult HPI - General Chief complaint: Extremity Problem,Nontraumatic Stated complaint: leg pain Time Seen by Provider: 01/20/18 14:44 Source: patient, RN notes reviewed Mode of arrival: ambulatory Limitations: no limitations - History of Present Illness Initial comments: 22-year-old female presents to the emergency department for a chief complaint of left lower back pain x 1 day. Patient states she has chronic low back pain. Patient states the pain is now radiating from her low back down into her left hip. Patient denies any bladder or bowel changes. Patient states she has full range of motion of her back. 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 She states it feels better when she is laying down and relaxing. Patient denies any numbness in the left lower extremity. She denies any pain in the calf or knee. Patient is currently 17 weeks . She has no other complaints at this time. Patient denies shortness of breath, chest pain, abdominal pain, nausea or vomiting. - Related Data Home Medications Medication Instructions Recorded Confirmed Bjg-Nevn-Bzpij Acid 1 cap PO DAILY 03/04/17 01/07/18 [-U Capsule (formulary)] Previous Rx's Medication Instructions Recorded Cephalexin [Keflex] 500 mg PO Q8HR #21 cap 01/07/18 Allergies Allergy/AdvReac Type Severity Reaction Status Date / Time chocolate flavor Allergy Unknown Verified 01/20/18 14:12 pollen extracts Allergy Swelling Verified 01/20/18 14:12 dust Allergy Swelling Uncoded 01/20/18 14:12 pet hair Allergy Anaphylaxis Uncoded 01/20/18 14:12 Review of Systems ROS Statement: Those systems with pertinent positive or pertinent negative responses have been documented in the HPI. ROS Other: All systems not noted in ROS Statement are negative. Past Medical History Past Medical History: Asthma Additional Past Medical History / Comment(s): concussion History of Any Multi-Drug Resistant Organisms: None Reported Past Surgical History: No Surgical Hx Reported Past Psychological History: Bipolar, Depression Smoking Status: Never smoker Past Alcohol Use History: None Reported Past Drug Use History: None Reported General Exam Limitations: no limitations General appearance: alert, in no apparent distress Respiratory exam: Present: normal lung sounds bilaterally. Absent: respiratory distress, wheezes, rales, rhonchi, stridor Cardiovascular Exam: Present: regular rate, normal rhythm, normal heart sounds. Absent: systolic murmur, diastolic murmur, rubs, gallop, clicks Extremities exam: Present: normal inspection, full ROM (full ROM of the left lower extremity.), normal capillary refill (< 2 seconds in LLE and pedal pulse 2 + in LLE.), other. Absent: tenderness, pedal edema, joint swelling, calf tenderness (no calf tenderness, erthema, or swelling.) Back exam: Present: other (Patient has some pain with flexion of the lower back. ). Absent: tenderness (no tenderness of the vertebrae), CVA tenderness (R), CVA tenderness (L) Neurological exam: Present: alert, oriented X3, CN II-XII intact Psychiatric exam: Present: normal affect, normal mood Course Vital Signs 01/20/18 14:10 Temperature 98.3 F Pulse Rate 98 Respiratory 20 Rate Blood Pressure 127/85 O2 Sat by Pulse 99 Oximetry Medical Decision Making - Medical Decision Making 22-year-old female presents to the emergency department for a chief complaint of low back pain radiating into the left leg x 1 day. Patient does have some chronic lower back pain. Patient denies any numbness or tingling in the left lower leg. Denies any bladder or bowel changes. Patient has full range of motion of the lower back but some pain with flexion of the low back. She has full range of motion of the left leg. Patient is 17 weeks therefore an x-ray of the low back was not performed. Patient likely has some sciatic pain. Patient was advised to take Tylenol and follow-up with OB. She was told specifically not to take Motrin. 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 She is to return here if she has any worsening pain or changes in bladder or bowel function. Patient is aware of this. Disposition Clinical Impression: Sciatica Disposition: HOME SELF-CARE Condition: Good Instructions: Sciatica (ED) Additional Instructions: Please take Tylenol for relief and apply warm heat or ice to the area depending on which one feels better. Do not take Motrin/Ibuprofen. Please follow-up with OB in 1-2 days. Return to the emergency department if you have any worsening symptoms or bladder/bowel changes. Is patient prescribed a controlled substance at d/c from ED?: No Referrals: None,Stated [Primary Care Provider] - 1-2 days Time of Disposition: 15:43
== END 2018-01-20 15:51 | disposition home or self-care (01) ==
LOC: EC 13:57
DX: O99.89 Other specified diseases and conditions complicating pregnancy, childbirth and the puerperium (principal); M54.32 Sciatica, left side; Z3A.17 17 weeks gestation of pregnancy; Z91.018 Allergy to other foods; Z91.048 Other nonmedicinal substance allergy status
CPT/HCPCS: 99283

== ENCOUNTER 2018-02-06 18:25 | Emergency (ER) | payer OTHER ==
[2018-02-06 18:43] VITALS: BP 128/71; PULSE 72; RESP 18; TEMP 98.8
--- NOTE | 2018-02-06 19:11 | ED ---
General Adult HPI - General Chief complaint: Nausea/Vomiting/Diarrhea Stated complaint: Vomiting Time Seen by Provider: 02/06/18 18:58 Source: patient Mode of arrival: ambulatory Limitations: no limitations - History of Present Illness Initial comments: Alicia is a 22-year-old who presents to the emergency department today for evaluation of low abdominal cramping that began this evening. Patient reports that yesterday evening she ate dinner at a [employer] food place at the mall. She reports that she woke this morning feeling very nauseated. She reports that she had multiple episodes of vomitus, she reports that her last episode of vomiting tests had streaked red blood. She believes that this is just from the force of her vomiting. Patient states that despite vomiting she's been able to drink plenty of fluids today and is trying very hard to stay hydrated. Patient reports that throughout her she has been suffering from diarrhea, she doesn't feel that it's any worse today than it has been throughout the entire . Patient states that this evening she began to feel lower abdominal cramping and she didn't feel that her baby was as active as usual so she came to the hospital to have the baby evaluated. She states that she doesn't want take any medications that aren't absolutely safe for the baby and that she feels comfortable managing the nausea on her own. He states that she believes she is fine and if it was just her she absolutely would not have come to Hospital however she wants to have her baby checked. - Related Data Home Medications Medication Instructions Recorded Confirmed Sit-Zdgj-Axnbg Acid 1 cap PO DAILY 03/04/17 01/07/18 [-U Capsule (formulary)] Allergies Allergy/AdvReac Type Severity Reaction Status Date / Time pollen extracts Allergy Swelling Verified 02/06/18 19:10 dust Allergy Swelling Uncoded 02/06/18 18:43 pet hair Allergy Anaphylaxis Uncoded 02/06/18 18:43 Review of Systems ROS Statement: Those systems with pertinent positive or pertinent negative responses have been documented in the HPI. ROS Other: All systems not noted in ROS Statement are negative. Constitutional: Denies: fever, chills Eyes: Reports: vision change (blurred vision throughout , unchanged today). Denies: eye pain ENT: Reports: throat pain Respiratory: Denies: cough, dyspnea Cardiovascular: Denies: chest pain, palpitations Endocrine: Reports: fatigue Gastrointestinal: Reports: abdominal pain, nausea, vomiting, diarrhea Genitourinary: Denies: urgency, dysuria Skin: Denies: rash, lesions Neurological: Denies: headache, weakness Psychiatric: Denies: anxiety, depression Hematological/Lymphatic: Denies: easy bleeding, easy bruising Past Medical History Past Medical History: Asthma Additional Past Medical History / Comment(s): concussion History of Any Multi-Drug Resistant Organisms: None Reported Past Surgical History: No Surgical Hx Reported Past Psychological History: Bipolar, Depression Smoking Status: Never smoker Past Alcohol Use History: None Reported Past Drug Use History: None Reported General Exam Limitations: no limitations General appearance: alert, in no apparent distress Head exam: Present: atraumatic, normocephalic Eye exam: Present: normal appearance, PERRL, EOMI ENT exam: Present: normal exam, mucous membranes moist. Absent: mucous membranes dry Neck exam: Present: normal inspection Respiratory exam: Present: normal lung sounds bilaterally. Absent: respiratory distress Cardiovascular Exam: Present: regular rate, normal rhythm GI/Abdominal exam: Present: soft, other (gravid uterus ). Absent: tenderness, guarding, rebound, rigid Rectal exam: Present: deferred Extremities exam: Present: normal inspection, normal capillary refill. Absent: pedal edema Neurological exam: Present: alert, oriented X3 Psychiatric exam: Present: normal affect, normal mood Course Vital Signs 02/06/18 18:40 Temperature 98.8 F Pulse Rate 72 Respiratory 18 Rate Blood Pressure 128/71 O2 Sat by Pulse 100 Oximetry Medical Decision Making - Medical Decision Making Patient was seen and evaluated, vital signs were reviewed, there are no Sirs criteria history was obtained from the patient At this time the patient states that she doesn't feel she needs any workup or evaluation for her nausea or vomiting, she declines any treatment. She states that she is here only to have her baby evaluated to make sure that the baby is okay because she is experiencing cramping and feels like baby may be less active than usual although she does state that the baby kicks when she sat down on the hospital gurney. The patient is currently 20 weeks and 2 days , at this time I'll transfer her to the OB floor for further evaluation Disposition Clinical Impression: Nausea vomiting and diarrhea, Abdominal cramping complicating Disposition: HOME SELF-CARE Condition: Good Instructions: Acute Nausea and Vomiting (ED) Is patient prescribed a controlled substance at d/c from ED?: No Referrals: None,Stated [Primary Care Provider] - 1-2 days Arlet Gipson MD [STAFF PHYSICIAN] - As Soon As Possible (Head to OB floor now) Time of Disposition: 19:11
== END 2018-02-06 19:25 | disposition home or self-care (01) ==
LOC: EC 18:25
DX: O21.9 Vomiting of pregnancy, unspecified (principal); O99.89 Other specified diseases and conditions complicating pregnancy, childbirth and the puerperium; R10.30 Lower abdominal pain, unspecified; R19.7 Diarrhea, unspecified; Z3A.20 20 weeks gestation of pregnancy; Z91.048 Other nonmedicinal substance allergy status; Z53.29 Procedure and treatment not carried out because of patient's decision for other reasons
CPT/HCPCS: 99283

== ENCOUNTER 2018-02-06 19:25 | Outpatient (CLI) | payer OTHER ==
[2018-02-06 20:57] VITALS: BP 109/75; PULSE 64; RESP 16; TEMP 97.7
--- NOTE | 2018-02-08 12:17 | P.MSEPDOC ---
Presenting Problems - Arrival Data Date of Arrival on Unit: 02/06/18 Time of Arrival on Unit: 19:30 Mode of Transport: Wheelchair - Complaint OB-Reason for Admission/Chief Complaint: Decreased Movement Comment: seen in EC for food poisoning, nausea vomit Medical History - Information : 2 Para: 0 Term: 0 : 0 Abortions: Spontaneous or Elective: 0 Number of Living Children: 0 - Gestational Age Gestational Age by LONG (wks/days): 19 Weeks and 1 Days Review of Systems - Review of Systems Constitutional: No problems Breast: No problems ENT: No problems Cardiovascular: No problems Respiratory: No problems Gastrointestinal: No problems Genitourinary: No problems Musculoskeletal: No problems Neurological: No problems Skin: No problems Comment: nausea, vomitting Vital Signs - Temperature Temperature: 97.7 F Temperature Source: Temporal Artery Scan - Pulse Right Brachial Pulse Rate: 64 Pulse Assessment Method: Automatic Cuff - Respirations Respiratory Rate: 16 Oxygen Delivery Method: Room Air O2 Sat by Pulse Oximetry: 98 - Blood Pressure Right Arm Blood Pressure: 109/75 Blood Pressure Mean: 86 Blood Pressure Source: Automatic Cuff Medical Screen Scoring (Pre) - Cervical Exam Dilation: 0 cm = 0 Membranes: Intact - Uterine Contractions Frequency: N/A Duration: N/A Intensity: N/A - Maternal Vital Signs Maternal Temperature: N/A Maternal Blood Pressure: N/A Signs of Preeclampsia: N/A Maternal Respirations: N/A - Pain Assessment Pain Location and Character: Head Pain Scale Used: Numeric (1 - 10) Pain Intensity: 8 Pain Description: *Acute, Aching Pain Frequency: Constant Pain Duration: 3 Pain Duration Units: Hours Pain Behavior: None Exhibited Pain Aggravating Factors: Activity Non-Pharmacological Interventions: Darkened Room - Maternal Trauma Maternal Trauma: N/A - Assessment Baseline FHR: 154 - Total Score Total Score (Pre): 0 - Level of Risk Level of Risk: Low (0-5) Physician Notification (Pre) - Physician Notified Physician Notified Date: 02/06/18 Physician Notified Time: 19:38 Spoke With: Gomez Doll Order Received: Yes (discharge if closed and thick) - Notification Comment Comment: cervix closed and thick Disposition - Disposition OB Disposition: Discharge to home, Written follow up instructions reviewed Discharge Date: 02/06/18 Discharge Time: 19:55 I agree with the RN Medical Screening Exam: Yes Risk & Benefit of care provided described in d/c instruction: Yes Diagnosis: DECREASED MOVEMENTS, SECOND TRIMESTER, UNSP
== END 2018-02-06 19:55 | disposition home or self-care (01) ==
LOC: FBPOP 19:25
PROVIDERS: ATTEND Obstetrics & Gynecology
DX: O36.8120 Decreased fetal movements, second trimester, not applicable or unspecified (principal); Z3A.19 19 weeks gestation of pregnancy
CPT/HCPCS: 99213

== ENCOUNTER 2018-02-14 18:07 | Emergency (ER) | payer OTHER ==
[2018-02-14 19:22] VITALS: RESP 18; TEMP 98
[2018-02-14] MEDS ORDERED: SODIUM CHLORIDE 0.9% 1,000 ML IV STA (19:28)
[2018-02-14] MEDS ORDERED: PYRIDOXINE 100 MG/ML 1 ML VIAL IM STA (19:33)
[2018-02-14] MEDS ORDERED: PROCHLORPERAZINE 10 MG TAB PO STA (19:35)
[2018-02-14] MEDS ORDERED: DEXTROSE 5%-0.9% NACL 1,000 ML IV ONE (19:45)
[2018-02-14 20:04] LABS: Appearance,Urine Cloudy (Clear); Bilirubin,Urine 1+ (Negative); Blood,Urine Negative (Negative); Color,Urine Dark Yellow; Glucose,Urine (UA) Negative (Negative); Ketones,Urine 4+ (Negative); Leukocyte Esterase,Urine Negative (Negative); Mucus,Urine Many /hpf; Nitrite,Urine Negative (Negative); PH, Urine 6.5 (5.0-8.0); Protein,Urine 2+ (Negative); RBC,Urine 2 /hpf (0-5); Squamous Epithelial Cell,Urine 5 /hpf (0-4); WBC,Urine 4 /hpf (0-5)
[2018-02-14 20:15] LABS: Basophils % (A) 0 %; Eosinophils # (A) 0.1 k/uL (0-0.7); Eosinophils % (A) 1 %; HCT 31.6 % (34.0-46.0); HGB 10.6 gm/dL (11.4-16.0); Lymphocytes # (A) 2.1 k/uL (1.0-4.8); Lymphocytes % (A) 29 %; MCH 27.6 pg (25.0-35.0); MCHC 33.4 g/dL (31.0-37.0); MCV 82.7 fL (80.0-100.0); Mean Platelet Volume 8.2; Monocytes # (A) 0.3 k/uL (0-1.0); Monocytes % (A) 4 %; Neutrophils # (A) 4.8 k/uL (1.3-7.7); Neutrophils % (A) 64 %; Platelet Count 260 k/uL (150-450); RBC 3.83 m/uL (3.80-5.40); RDW 15.1 % (11.5-15.5); WBC 7.5 k/uL (3.8-10.6)
[2018-02-14 20:33] LABS: ALT 43 U/L (9-52); AST 30 U/L (14-36); Alkaline Phosphatase 87 U/L (38-126); Anion Gap 14 mmol/L; Blood Urea Nitrogen 7 mg/dL (7-17); Calcium 9.7 mg/dL (8.4-10.2); Carbon Dioxide 24 mmol/L (22-30); Chloride 100 mmol/L (98-107); Glucose 82 mg/dL (74-99); Magnesium 1.9 mg/dL (1.6-2.3); Potassium 3.1 mmol/L (3.5-5.1); Sodium 138 mmol/L (137-145); Total Bilirubin 0.3 mg/dL (0.2-1.3); Total Protein 6.8 g/dL (6.3-8.2)
[2018-02-14] MEDS ORDERED: POTASSIUM CHLORIDE ER 20 MEQ TAB.ER PO STA (20:40)
[2018-02-14] MEDS ORDERED: Potassium Replacement Protocol 1 EACH MISC MISCELLANE PRN (20:40)
--- NOTE | 2018-02-14 21:42 | ED ---
General Adult HPI - General Chief complaint: Nausea/Vomiting/Diarrhea Stated complaint: Vomiting Time Seen by Provider: 02/14/18 19:11 Source: patient Mode of arrival: ambulatory Limitations: no limitations - History of Present Illness Initial comments: Patient is a 22-year-old female at 20 weeks and presents for nausea and vomiting. She was seen 2 weeks ago when she had similar symptoms and states that she continues to have nausea and vomiting but the vomiting is only there with standing. 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 She denies any diarrhea as well as fevers or chills. She denies any abdominal pain or vaginal bleeding. - Related Data Home Medications Medication Instructions Recorded Confirmed Zts-Ycdi-Upgxa Acid 1 cap PO DAILY 03/04/17 02/06/18 [-U Capsule (formulary)] Previous Rx's Medication Instructions Recorded Doxylamine Succinate/Vit B6 1 each PO HS 14 Days #28 tab.ir. 02/14/18 [Bonjesta ER 20-20 mg Tablet] Allergies Allergy/AdvReac Type Severity Reaction Status Date / Time pollen extracts Allergy Swelling Verified 02/14/18 18:14 dust Allergy Swelling Uncoded 02/14/18 18:14 pet hair Allergy Anaphylaxis Uncoded 02/14/18 18:14 Review of Systems ROS Statement: Those systems with pertinent positive or pertinent negative responses have been documented in the HPI. Constitutional: Negative for chills, fatigue and fever. HENT: Negative for congestion. Respiratory: Negative for chest tightness, shortness of breath and wheezing. Negative for cough Cardiovascular: Negative for chest pain and palpitations. Gastrointestinal: Negative for abdominal pain. Negative for abdominal distention , diarrhea, and vomiting. Positive for nausea Genitourinary: Negative for dysuria. Musculoskeletal: Negative for back pain, neck pain and neck stiffness. Skin: Negative for color change. Neurological: Negative for dizziness, speech difficulty, weakness and light- headedness. Psychiatric/Behavioral: Negative for agitation and confusion. The patient is not nervous/anxious. ROS Other: All systems not noted in ROS Statement are negative. Past Medical History Past Medical History: Asthma Additional Past Medical History / Comment(s): concussion History of Any Multi-Drug Resistant Organisms: None Reported Past Surgical History: No Surgical Hx Reported Past Psychological History: Bipolar, Depression Smoking Status: Never smoker Past Alcohol Use History: None Reported Past Drug Use History: None Reported General Exam - General Exam Comments Initial Comments: Constitutional: Pt is oriented to person, place, and time. Pt appears well- developed and well-nourished. No distress. HENT: Head: Normocephalic and atraumatic. Eyes: EOM are normal. Neck: Normal range of motion. Neck supple. Cardiovascular: Normal rate, regular rhythm, S1 normal, S2 normal and normal heart sounds. Exam reveals no gallop and no friction rub. No murmur heard. Pulmonary/Chest: Effort normal and breath sounds normal. No tachypnea and no bradypnea. No respiratory distress. No wheezes or rales noted. Abdominal: Soft. Bowel sounds are normal. Pt exhibits no shifting dullness, no distension, no pulsatile liver, no fluid wave, no abdominal bruit and no ascites. There is no tenderness. There is no rigidity, no rebound, no guarding, no tenderness at McBurney's point and negative Toledo's sign. Musculoskeletal: Normal range of motion. Neurological: Pt is alert and oriented to person, place, and time. No cranial nerve deficit. Skin: Skin is warm and dry. No rash noted. Pt is not diaphoretic. No erythema. No pallor. Psychiatric: Pt has a normal mood and affect. Pt behavior is normal. Thought content normal. Limitations: no limitations Course Vital Signs 02/14/18 02/14/18 02/14/18 18:11 19:21 20:30 Temperature 97.8 F 98.0 F Pulse Rate 90 81 67 Respiratory 20 18 18 Rate Blood Pressure 125/58 121/59 116/67 O2 Sat by Pulse 97 100 100 Oximetry 02/14/18 02/14/18 21:03 22:08 Temperature Pulse Rate 75 70 Respiratory 18 18 Rate Blood Pressure 127/76 115/59 O2 Sat by Pulse 100 100 Oximetry Medical Decision Making - Medical Decision Making Labs showed a hemoglobin was 10.6 and potassium was low at 3.1 which was replaced orally. Urinalysis was negative for infection but did show evidence of dehydration as well as 4+ ketones. Patient was given 1 L normal saline as well as 1 L of D5 tenderness and Compazine and B6. Patient did have one episode of vomiting in the emergency department. Because of this, it was advised that based on the dehydration status and intractable vomiting, patient should person observation for continued hydration. However, the patient currently declined and stated that she wanted to follow-up as an outpatient. Patient was given a prescription for Diclegis shows and instructed to follow-up in 1-2 days with OB doctor. Patient was agreeable plan - Lab Data Result diagrams: 02/14/18 20:01 02/14/18 20:01 Lab Results 02/14/18 02/14/18 02/14/18 Range/Units 19:40 20:01 20:01 WBC 7.5 (3.8-10.6) k/uL RBC 3.83 (3.80-5.40) m/uL Hgb 10.6 L (11.4-16.0) gm/dL Hct 31.6 L (34.0-46.0) % MCV 82.7 (80.0-100.0) fL MCH 27.6 (25.0-35.0) pg MCHC 33.4 (31.0-37.0) g/dL RDW 15.1 (11.5-15.5) % Plt Count 260 (150-450) k/uL Neutrophils % 64 % Lymphocytes % 29 % Monocytes % 4 % Eosinophils % 1 % Basophils % 0 % Neutrophils # 4.8 (1.3-7.7) k/uL Lymphocytes # 2.1 (1.0-4.8) k/uL Monocytes # 0.3 (0-1.0) k/uL Eosinophils # 0.1 (0-0.7) k/uL Basophils # 0.0 (0-0.2) k/uL Sodium 138 (137-145) mmol/L Potassium 3.1 L (3.5-5.1) mmol/L Chloride 100 (98-107) mmol/L Carbon Dioxide 24 (22-30) mmol/L Anion Gap 14 mmol/L BUN 7 (7-17) mg/dL Creatinine 0.53 (0.52-1.04) mg/dL Est GFR (CKD-EPI)AfAm >90 (>60 ml/min/1.73 sqM) Est GFR (CKD-EPI)NonAf >90 (>60 ml/min/1.73 sqM) Glucose 82 (74-99) mg/dL Calcium 9.7 (8.4-10.2) mg/dL Magnesium 1.9 (1.6-2.3) mg/dL Total Bilirubin 0.3 (0.2-1.3) mg/dL AST 30 (14-36) U/L ALT 43 (9-52) U/L Alkaline Phosphatase 87 (38-126) U/L Total Protein 6.8 (6.3-8.2) g/dL Albumin 4.0 (3.5-5.0) g/dL Urine Color Dark Yellow Urine Appearance Cloudy H (Clear) Urine pH 6.5 (5.0-8.0) Ur Specific [place] 1.030 (1.001-1.035) Urine Protein 2+ H (Negative) Urine Glucose (UA) Negative (Negative) Urine Ketones 4+ H (Negative) Urine Blood Negative (Negative) Urine Nitrite Negative (Negative) Urine Bilirubin 1+ H (Negative) Urine Urobilinogen 4.0 (<2.0) mg/dL Ur Leukocyte Esterase Negative (Negative) Urine RBC 2 (0-5) /hpf Urine WBC 4 (0-5) /hpf Ur Squamous Epith Cells 5 H (0-4) /hpf Urine Mucus Many H (None) /hpf Disposition Clinical Impression: Hyperemesis gravidarum Disposition: HOME SELF-CARE Condition: Good Instructions: Hyperemesis Gravidarum (ED) Prescriptions: Doxylamine Succinate/Vit B6 [Bonjesta ER 20-20 mg Tablet] 1 each PO HS 14 Days # 28 tab.ir.dr Is patient prescribed a controlled substance at d/c from ED?: No Referrals: None,Stated [Primary Care Provider] - 1-2 days Time of Disposition: 21:44
[2018-02-14 22:13] VITALS: BP 115/59; PULSE 70
== END 2018-02-14 22:14 | disposition home or self-care (01) ==
LOC: EC 18:07
DX: O21.1 Hyperemesis gravidarum with metabolic disturbance (principal); Z3A.20 20 weeks gestation of pregnancy; Z91.048 Other nonmedicinal substance allergy status; Z91.09 Other allergy status, other than to drugs and biological substances
CPT/HCPCS: 36415; 80053; 83735; 85025; 81001; 87086; 99284; 96360; 96361; 96372; S0183; J3415

== ENCOUNTER 2018-02-16 11:58 | Observation (INO) | payer OTHER ==
[2018-02-16] MEDS ORDERED: ONDANSETRON 4 MG/2 ML VIAL IM STA (12:17)
[2018-02-16] MEDS ORDERED: LACTATED RINGERS 1,000 ML IV ONE (12:30)
[2018-02-16 12:51] LABS: Basophils % (A) 0 %; Eosinophils # (A) 0.1 k/uL (0-0.7); Eosinophils % (A) 1 %; HCT 32.9 % (34.0-46.0); HGB 10.5 gm/dL (11.4-16.0); Lymphocytes # (A) 1.6 k/uL (1.0-4.8); Lymphocytes % (A) 31 %; MCH 27.1 pg (25.0-35.0); MCV 84.9 fL (80.0-100.0); Mean Platelet Volume 8.3; Monocytes # (A) 0.2 k/uL (0-1.0); Monocytes % (A) 4 %; Neutrophils # (A) 3.3 k/uL (1.3-7.7); Neutrophils % (A) 62 %; Platelet Count 230 k/uL (150-450); RBC 3.87 m/uL (3.80-5.40); RDW 15.2 % (11.5-15.5); WBC 5.3 k/uL (3.8-10.6)
[2018-02-16 13:05] LABS: ALT 44 U/L (9-52); AST 31 U/L (14-36); Albumin 3.6 g/dL (3.5-5.0); Alkaline Phosphatase 79 U/L (38-126); Anion Gap 13 mmol/L; Blood Urea Nitrogen 5 mg/dL (7-17); Calcium 9.4 mg/dL (8.4-10.2); Carbon Dioxide 25 mmol/L (22-30); Chloride 103 mmol/L (98-107); Glucose 80 mg/dL (74-99); Potassium 3.3 mmol/L (3.5-5.1); Sodium 141 mmol/L (137-145); Total Bilirubin 0.4 mg/dL (0.2-1.3); Total Protein 6.2 g/dL (6.3-8.2)
[2018-02-16] MEDS ORDERED: ACETAMINOPHEN TAB 325 MG TAB PO STA (14:20)
[2018-02-16] MEDS: LACTATED RINGERS 1,000 ML IV SCH ×3 (14:56→18:22)
[2018-02-16 15:04] LABS: Appearance,Urine Clear (Clear); Bacteria,Urine Rare /hpf; Bilirubin,Urine 1+ (Negative); Blood,Urine Negative (Negative); Color,Urine Yellow; Glucose,Urine (UA) Negative (Negative); Ketones,Urine 3+ (Negative); Leukocyte Esterase,Urine Negative (Negative); Mucus,Urine Many /hpf; Nitrite,Urine Negative (Negative); Protein,Urine 1+ (Negative); RBC,Urine 1 /hpf (0-5); Specific Gravity,Urine 1.022 (1.001-1.035); Squamous Epithelial Cell,Urine 2 /hpf (0-4); WBC,Urine 6 /hpf (0-5)
[2018-02-16] MEDS ORDERED: ONDANSETRON 4 MG/2 ML VIAL IVP PRN (17:28)
--- NOTE | 2018-02-16 17:40 | P.HPOB ---
History of Present Illness H&P Date: 02/16/18 Chief Complaint: Nausea and vomiting This is a 22-year-old female 2 para 0 at 20-4/7 weeks who presents after being seen in the office today for her routine visit for IV hydration due to nausea and vomiting. She states it started last week after her ultrasound and she went to the emergency room for IV hydration and at that time they told her that she would need to be admitted but she had to get to work so she did not consent to admission. 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 She thinks she may have eaten some bad Hebrew food and that was what started it all but it has not improved within a few days. She currently has 3+ ketones and slightly low potassium. While she's been in triage and on her second liter of fluid, she still has some vomiting and has not been able to even hold down Tylenol. She also complains of a headache and some trouble with focusing with her eyes. She does have a history of sinus issues. She will be admitted for observation and IV hydration. We will try some IV Benadryl to see if this helps with not only her sinus issue but possibly her nausea too. Obstetrical history: . History of 1 miscarriage. Review of Systems Constitutional: Denies chills, Denies fever Eyes: bilateral blurred vision Ears, nose, mouth and throat: Reports headache, Reports nasal congestion, Denies sore throat Cardiovascular: Denies chest pain, Denies shortness of breath Respiratory: Denies cough Gastrointestinal: Reports nausea, Reports vomiting, Denies abdominal pain, Denies diarrhea Genitourinary: Reports , Denies dysuria, Denies hematuria Integumentary: Denies pruritus, Denies rash Neurological: Reports weakness, Denies numbness Psychiatric: Reports depression Past Medical History Past Medical History: Asthma Additional Past Medical History / Comment(s): concussion History of Any Multi-Drug Resistant Organisms: None Reported Past Surgical History: No Surgical Hx Reported Past Psychological History: Depression Smoking Status: Never smoker Past Alcohol Use History: None Reported Past Drug Use History: None Reported Medications and Allergies Home Medications Medication Instructions Recorded Confirmed Type Sgf-Pjke-Afvvo Acid 1 cap PO DAILY 03/04/17 02/16/18 History [-U Capsule (formulary)] Allergies Allergy/AdvReac Type Severity Reaction Status Date / Time pollen extracts Allergy Swelling Verified 02/16/18 12:14 dust Allergy Swelling Uncoded 02/16/18 12:14 pet hair Allergy Anaphylaxis Uncoded 02/16/18 12:14 Exam Osteopathic Statement: *. No significant issues noted on an osteopathic structural exam other than those noted in the History and Physical/Consult. - Vital Signs Vital signs: Intake and Output 02/16/18 02/16/18 02/16/18 06:59 14:59 22:59 Other: Weight 120.656 kg Gen.: Well-developed well-nourished female in some distress due to nausea. HEENT: Within normal limits Heart: Regular rate and rhythm Lungs: Clear to auscultation bilaterally Abdomen: , nontender with positive heart tones by Doppler Extremities: Negative Homans Results Result Diagrams: 02/16/18 12:40 02/16/18 12:40 Abnormal Lab Results - Last 24 Hours (Table) 02/16/18 02/16/18 02/16/18 Range/Units 12:40 12:40 14:52 Hgb 10.5 L (11.4-16.0) gm/dL Hct 32.9 L (34.0-46.0) % Potassium 3.3 L (3.5-5.1) mmol/L BUN 5 L (7-17) mg/dL Total Protein 6.2 L (6.3-8.2) g/dL Urine Protein 1+ H (Negative) Urine Ketones 3+ H (Negative) Urine Bilirubin 1+ H (Negative) Urine WBC 6 H (0-5) /hpf Urine Bacteria Rare H (None) /hpf Urine Mucus Many H (None) /hpf Assessment and Plan (1) 20 weeks gestation of Current Visit: Yes Status: Acute Code(s): Z3A.20 - 20 WEEKS GESTATION OF SNOMED Code(s): 78067011 (2) Nausea and vomiting during prior to 22 weeks gestation Current Visit: Yes Status: Acute Code(s): O21.9 - VOMITING OF , UNSPECIFIED SNOMED Code(s): 44577801 Plan: Plan is admission as a 23 hour observation. Will continue with IV hydration. Will add IV Benadryl as needed to see if this helps improve her symptoms. Will continue with diet as tolerated. No monitoring is necessary at this time.
--- NOTE | 2018-02-16 17:47 | P.MSEPDOC ---
Presenting Problems - Arrival Data Date of Arrival on Unit: 02/16/18 Time of Arrival on Unit: 11:59 Mode of Transport: Ambulatory - Complaint Comment: pt sent from office for iv hydration and labs Medical History - Information : 2 Para: 0 Term: 0 : 0 Abortions: Spontaneous or Elective: 1 Number of Living Children: 0 Disposition - Disposition OB Disposition: Observe, Triage I agree with the RN Medical Screening Exam: Yes Risk & Benefit of care provided described in d/c instruction: Yes Diagnosis: VOMITING OF , UNSPECIFIED
[2018-02-16] MEDS: diphenhydrAMINE 50 MG/ML 1 ML VIAL IVP PRN (17:54)
[2018-02-16 18:12] VITALS: BMI 45.6
[2018-02-16] MEDS: ACETAMINOPHEN TAB 325 MG TAB PO PRN (23:51)
[2018-02-17] MEDS: LACTATED RINGERS 1,000 ML IV SCH (01:18)
--- NOTE | 2018-02-17 07:10 | P.DS ---
Providers Date of admission: 02/16/18 17:37 Expected date of discharge: 02/17/18 Attending physician: Catherine Dyer Primary care physician: Stated None - Discharge Diagnosis(es) (1) 20 weeks gestation of Current Visit: Yes Status: Acute (2) Nausea and vomiting during prior to 22 weeks gestation Current Visit: Yes Status: Acute Hospital Course: This is a 22-year-old female 2 para 0 at 20-4/7 weeks who presented with nausea and vomiting that have been going on almost a week. In triage she was noted to have 3+ ketones and could not hold anything down. She was given IV hydration and Zofran. I did admit her for overnight observation and through the night she has been able to hold some foods down along with fluids. She also did receive a dose of IV Benadryl. She did have a headache when she came in and it still is present. Tylenol did not really help her headache. She does still complain of some sinus congestion. She will see how she tolerates breakfast and then go home after breakfast. She is encouraged that she can continue to take antihistamines as needed for sinus congestion and headache. She will follow up in the office as scheduled in my she has any further problems. Procedures: IV hydration Patient Condition at Discharge: Stable Plan - Discharge Summary New Discharge Prescriptions: Continue Pcj-Ezon-Mltfq Acid [-U Capsule (formulary)] 1 cap PO DAILY Discharge Medication List Azx-Zsnu-Hbbkb Acid [-U Capsule (formulary)] 1 cap PO DAILY 03/15 [History] Follow up Appointment(s)/Referral(s): Catherine yDer DO [Doctor of Osteopathic Medicine] - 4 Weeks Activity/Diet/Wound Care/Special Instructions: Activity as tolerated. Diet as tolerated. Discharge Disposition: HOME SELF-CARE
[2018-02-17] MEDS: diphenhydrAMINE 50 MG/ML 1 ML VIAL IVP PRN (07:40)
[2018-02-17] MEDS: ACETAMINOPHEN TAB 325 MG TAB PO PRN (07:41)
[2018-02-17 09:37] VITALS: BP 106/64; PULSE 67; RESP 18; TEMP 98.4
== END 2018-02-17 13:00 | disposition home or self-care (01) ==
LOC: FBPOP 11:58 → 4FBP 17:37
PROVIDERS: ADMIT Obstetrics & Gynecology; ATTEND Obstetrics & Gynecology
DX: O21.9 Vomiting of pregnancy, unspecified (principal); O99.512 Diseases of the respiratory system complicating pregnancy, second trimester; R09.81 Nasal congestion; J45.909 Unspecified asthma, uncomplicated; O99.342 Other mental disorders complicating pregnancy, second trimester; F32.9 Major depressive disorder, single episode, unspecified; Z3A.20 20 weeks gestation of pregnancy; Z87.820 Personal history of traumatic brain injury; Z91.048 Other nonmedicinal substance allergy status
CPT/HCPCS: 96376; 96360; 96361 ×2; 96372; 96374; 80053; 85025; 81001; G0378 ×2; G0463; J1200 ×2; J2405; 59025; 96365; 96375; 99214

== ENCOUNTER 2018-05-04 16:51 | Inpatient (IN) | payer OTHER ==
--- NOTE | 2018-05-04 17:45 | US ---
EXAMINATION TYPE: US OB limited; transabdominal (TA) DATE OF EXAM: 05/04/2018 CLINICAL HISTORY: No FHT on doppler. No heart tones sent from Dr. Lomax office.Exam limitations due to body habitus. COMPARISON: None GESTATIONAL AGE / DATING No growth performed on today?s study per ordering physician SURVEY PRESENTATION: Vertex HEART RATE: No heart tones seen. BABY POSITION: Vertex. IMPRESSION: NO HEART TONES SEEN.
[2018-05-04] MEDS ORDERED: ZOLPIDEM 5 MG TAB PO PRN (18:07)
[2018-05-04] MEDS ORDERED: BUTORPHANOL 1 MG/ML 1 ML VIAL IV PRN (18:07)
[2018-05-04] MEDS ORDERED: DINOPROSTONE 10 MG INSERT.ER VAGINAL ONE (18:07)
--- NOTE | 2018-05-04 19:05 | P.HPOB ---
History of Present Illness H&P Date: 05/04/18 Chief Complaint: demise This patient is a pleasant 22-year-old 2 para 0 female estimated date of confinement 07/02/2018 estimated gestational age 31-4/7 weeks gestation who is seen by Dr. Dyer this afternoon for routine visit and was found to have a demise. Patient's care for the most part appears to be uncomplicated with the exception of some nausea or vomiting. Dr. Dyer counseled the patient in the office and plan is to proceed with induction of labor at this time. Patient denies any vaginal bleeding or leaking fluid. Review of Systems Constitutional: Denies chills, Denies fever Gastrointestinal: Reports nausea, Reports vomiting Genitourinary: Reports Menstruation: Reports amenorrhea Past Medical History Past Medical History: Asthma Additional Past Medical History / Comment(s): Hx concussion 2 yrs ago. Patient' s first was an elective . History of Any Multi-Drug Resistant Organisms: None Reported Past Surgical History: No Surgical Hx Reported Past Anesthesia/Blood Transfusion Reactions: No Reported Reaction Past Psychological History: No Psychological Hx Reported Smoking Status: Never smoker Past Alcohol Use History: None Reported Past Drug Use History: None Reported - Past Family History Mother Additional Family Medical History / Comment(s): Bipolar, Schizopphrenic, ADHD. Brother(s) Additional Family Medical History / Comment(s): Schizophrenic Medications and Allergies Home Medications Medication Instructions Recorded Confirmed Type Apq-Dofy-Umuzg Acid 1 cap PO DAILY 03/04/17 05/04/18 History [-U Capsule (formulary)] Allergies Allergy/AdvReac Type Severity Reaction Status Date / Time pollen extracts Allergy Swelling Verified 05/04/18 16:59 dust Allergy Swelling Uncoded 05/04/18 16:59 pet hair Allergy Anaphylaxis Uncoded 05/04/18 16:59 Exam Intake and Output 05/04/18 05/04/18 05/04/18 06:59 14:59 22:59 Other: Weight 125.191 kg - OBG Physical Exam Vulva: both: normal Vagina: normal moisture, no discharge Cervix: no lesion, no discharge Uterus: enlarged (Fundal height is [address] Dyer[address] Results work shows she is B positive, rubella nonreactive, hepatitis B negative , HIV nonreactive, hemoglobin was 10.8. Preliminary ultrasound report shows fetus to be 29 weeks and one sevenths days, vertex presentation, with a normal amniotic fluid index of 11.8. There is no cardiac activity. Assessment and Plan Assessment: This is a pleasant 22-year-old 2 para 0 female 31-4/7 weeks gestation with recent diagnosis of demise. Patient has discussed this with Dr. Dyer and plan is to proceed with two-stage induction of labor at this time secondary to an unfavorable cervix. I discussed this again with the patient and she wishes to proceed with Cervidil placement at this time. Patient will also need a stillborn evaluation and Dr. Dyer we will place these orders. I have answered the patient's questions to the best my abilities at this time, however she understands she needs to discuss this in more detail with Dr. Dyer tomorrow. (1) Third trimester Current Visit: Yes Status: Acute Code(s): Z34.93 - ENCNTR FOR SUPRVSN OF NORMAL PREG, UNSP, THIRD TRIMESTER SNOMED Code(s): 55606897 (2) demise, greater than 22 weeks, antepartum, single gestation Current Visit: Yes Status: Acute Code(s): O36.4XX0 - MATERNAL CARE FOR INTRAUTERINE , NOT APPLICABLE OR UNSP SNOMED Code(s): 77792841
--- NOTE | 2018-05-04 20:07 | US ---
EXAMINATION TYPE: US OB >= 14 wk fetus DATE OF EXAM: 05/04/2018 COMPARISON: None CLINICAL HISTORY: NO FHT. No heart tones; Dr. Dyer wanted growth done so rescanned patient. TECHNIQUE: Transabdominal (TA) GESTATIONAL AGE / DATING Physician Established: (31 weeks/4 days) EDC: 07/02/2018 Dates by LMP: (31 weeks/4 days) EDC: 07/02/2018 Dates by First Scan: No previous this is first scan Dates by Current Scan: (29 weeks/1 days) EDC: 07/19/2018 SURVEY IUP: Single PLACENTA: Posterior PREVIA: No Previa JOSUÉ: 11.84 cm Normal CERVICAL LENGTH (transabdominal: norm > 3.0cm): 3.6 cm BIOMETRY PRESENTATION: Vertex LIE: Longitudinal BPD: 7.31 cm 29 weeks / 2 days HC: 27.26 cm 29 weeks / 5 days AC: 26.20 cm 30 weeks / 2 days FL: 5.51 cm 29 weeks / 0 days ESTIMATED WEIGHT IN GRAMS: 1456 grams ESTIMATED WEIGHT IN LBS/OZ: 3 lbs. 3 oz. WEIGHT PERCENTAGE BASED ON ESTABLISHED DATES: 4.2% HC/AC: 1.04 cm Normal FL/AC: 21.03 cm Normal HEART RATE: No heart tones seen. IUP: Yes, but without heart tones. IMPRESSION: SINGLE IUP WITH NO CARDIAC ACTIVITY DEMONSTRATED.
[2018-05-04 21:59] VITALS: BMI 47.3
[2018-05-05] MEDS ORDERED: OXYTOCIN 20 UNITS/1000 ML NS 1,000 ML IV SCH ×2 (05:37→18:54)
[2018-05-05] MEDS: LACTATED RINGERS 1,000 ML IV SCH ×3 (05:37→13:23)
[2018-05-05] MEDS ORDERED: CARBOPROST TROMETHAMINE 250 MCG/ML 1 ML AMP IM PRN (05:37)
[2018-05-05] MEDS ORDERED: LIDOCAINE 1% 20 ML VIAL (10MG/ML) FOR IV START INTRADERMA PRN (05:37)
[2018-05-05] MEDS ORDERED: OXYTOCIN 10 UNIT/ML 1 ML VIAL IM PRN (05:37)
[2018-05-05] MEDS ORDERED: METHYLERGONOVINE 0.2 MG/ML 1 ML AMP IM PRN (05:37)
[2018-05-05] MEDS ORDERED: TERBUTALINE 1 MG/ML VIAL SQ PRN (05:37)
[2018-05-05] MEDS ORDERED: LIDOCAINE 1% (PF) 10 MG/ML (30 ML SDV) SQ PRN (05:37)
[2018-05-05] MEDS ORDERED: ONDANSETRON 4 MG/2 ML VIAL IVP PRN (05:37)
[2018-05-05 06:23] LABS: Basophils % (A) 0 %; Eosinophils # (A) 0.1 k/uL (0-0.7); Eosinophils % (A) 1 %; HCT 32.8 % (34.0-46.0); HGB 10.2 gm/dL (11.4-16.0); Lymphocytes # (A) 1.5 k/uL (1.0-4.8); Lymphocytes % (A) 21 %; MCH 25.7 pg (25.0-35.0); MCV 82.7 fL (80.0-100.0); Mean Platelet Volume 8.9; Monocytes # (A) 0.2 k/uL (0-1.0); Monocytes % (A) 3 %; Neutrophils # (A) 5.4 k/uL (1.3-7.7); Neutrophils % (A) 73 %; Platelet Count 253 k/uL (150-450); RBC 3.97 m/uL (3.80-5.40); RDW 15.1 % (11.5-15.5); WBC 7.4 k/uL (3.8-10.6)
--- NOTE | 2018-05-05 08:34 | P.PN ---
Progress Note - Text Progress Note Date: 05/05/18 Patient seen and examined this morning. She is feeling some cramping from the Cervidil last night. All of her questions were answered this morning. She does want to hold the baby after delivery. She is unsure about autopsy at this time. Cervix is examined and she is found to be -60% and -2 station. I was able to get the amnio-hook and an break the water and meconium fluid was noted. At this point she was noted to be 1 cm after rupture of membranes. Will give either Stadol or epidural as needed for pain control. Continue with induction of labor. Impression is demise at 29 weeks by ultrasound.
[2018-05-05] MEDS ORDERED: ROPIVACAINE 100 MG, fentaNYL (PF) 200 MCG in SODIUM CHLORIDE 0.9% 76 ML EPIDURAL ONE (12:16)
[2018-05-05] MEDS ORDERED: BENZOCAINE/MENTHOL SPRAY 1 GM/SPRAY AEROSOL TOPICAL PRN (18:54)
[2018-05-05] MEDS ORDERED: diphenhydrAMINE 50 MG CAP PO PRN (18:54)
[2018-05-05] MEDS ORDERED: ACETAMINOPHEN TAB 325 MG TAB PO PRN (18:54)
[2018-05-05] MEDS ORDERED: diphenhydrAMINE 50 MG/ML 1 ML VIAL IVP PRN ×2 (18:54)
[2018-05-05] MEDS ORDERED: WITCH HAZEL 1 EACH MED..PAD TOPICAL PRN (18:54)
[2018-05-05] MEDS ORDERED: diphenhydrAMINE 25 MG CAP PO PRN (18:54)
[2018-05-05] MEDS ORDERED: MEASLES-MUMPS-RUBELLA VACC/PF 12,500 UNIT/0.5 ML VIAL SQ ONE (18:54)
[2018-05-05] MEDS ORDERED: SIMETHICONE 80 MG CHEWABLE PO PRN (18:54)
[2018-05-05] MEDS ORDERED: HYDROCORTISONE 2.5% RECTAL CREAM 30 GM TUBE RECTAL PRN (18:54)
--- NOTE | 2018-05-05 19:23 | P.PROBDLV ---
Vaginal Delivery Note - . Vaginal Delivery Note: The patient did receive epidural anesthesia while in labor. She did undergo Cervidil cervical ripening followed by oxytocin induction of labor this morning. Artificial rupture membranes this morning revealed meconium-stained fluid. She had an urge to push and was able to deliver the 's head at 1829 followed shortly thereafter by the body. A tight nuchal cord 2 was doubly clamped and reduced around the 's head for delivery of the body. After the nonviable male was delivered, cord was clamped and cut. Mother was able to hold the . Placenta delivered shortly thereafter at 1837. Placenta was intact with a three-vessel cord. There was noted to be a hard area near the cord insertion that was consistent with a possible clot. Infant was examined and appeared anatomically normal. Skin was sloughing and there was a significant amount of edema noted on the infant. weight is pending at this time due to maternal bonding. At this time, the patient does not wish an autopsy. She would like the infant to stay with her in the room tonight. Placenta will be sent to pathology and cultures of the placenta were also taken.
[2018-05-05] MEDS: SENNOSIDES-DOCUSATE SODIUM 1 EACH TAB PO SCH (22:18)
[2018-05-05] MEDS: IBUPROFEN 600 MG TAB PO PRN (23:25)
[2018-05-06 07:29] LABS: Herpes simplex IgG I Ab 2.68 (< or = 0.90); Rubella IgG Ab 0.72 (<0.90); Toxoplasma Antibody (IgG) <3.0 IU/mL (<7.2)
[2018-05-06 07:35] LABS: Basophils % (A) 0 %; Eosinophils # (A) 0.1 k/uL (0-0.7); Eosinophils % (A) 1 %; HCT 31.8 % (34.0-46.0); Hypochromasia Slight; Lymphocytes # (A) 1.3 k/uL (1.0-4.8); Lymphocytes % (A) 18 %; MCH 26.3 pg (25.0-35.0); MCHC 31.4 g/dL (31.0-37.0); MCV 83.8 fL (80.0-100.0); Mean Platelet Volume 8.9; Monocytes # (A) 0.2 k/uL (0-1.0); Monocytes % (A) 3 %; Neutrophils # (A) 5.6 k/uL (1.3-7.7); Neutrophils % (A) 77 %; Platelet Count 226 k/uL (150-450); RDW 14.8 % (11.5-15.5); WBC 7.4 k/uL (3.8-10.6)
[2018-05-06 08:01] VITALS: RESP 18
[2018-05-06] MEDS: SENNOSIDES-DOCUSATE SODIUM 1 EACH TAB PO SCH (08:04)
[2018-05-06] MEDS: IBUPROFEN 600 MG TAB PO PRN ×2 (08:12→15:57)
--- NOTE | 2018-05-06 08:17 | P.DS ---
Providers Date of admission: 05/04/18 18:02 Expected date of discharge: 05/06/18 Attending physician: Catherine Dyer Consults: 05/06/18 08:10 Consult Physician Stat Consulting Provider: Psychiatry - [facility] Psychiatry Consult Reason/Comments: Suicidal ideation, recent demise, hx depression Do you want consulting provider notified?: Yes Primary care physician: Stated None Hospital Course: This is a 22-year-old female 2 para 0 at 31-4/7 weeks who presented with intrauterine demise. She underwent Cervidil cervical ripening on 02/2018 and then oxytocin induction of labor on 05/05/2018. She delivered a nonviable male on 05/05/2018. weight is pending at this time. Tight nuchal cord 2 was noted with delivery. She is declining autopsy. This morning she is very tearful and sad. She does state that she woke up this morning and has had suicidal thoughts but no plans. She does have a history of depression and was on medication for approximate 3 years in the past. She does not recall the name of her medication. She is requesting psychiatric consult. Her pain is fairly well controlled with ibuprofen. Bleeding is slowing. Vital signs are stable. Abdomen is soft with fundus firm and nontender. Extremities show negative Homans. Impression is status post vaginal delivery of a nonviable male fetus day #1. Plan is to obtain a stat psychiatric consult. Once she has been seen in evaluated by psychiatry, we may discharge home if okay with psychiatry. She will be given a prescription for ibuprofen. She is advised to follow-up in the office in approximately 1 week for a check. She is advised to call the office if she has any further questions or concerns prior to her appointment time. Procedures: Cervidil cervical ripening Oxytocin induction of labor Spontaneous vaginal delivery of a nonviable male fetus on 05/05/2018 Patient Condition at Discharge: Stable Plan - Discharge Summary New Discharge Prescriptions: New Ibuprofen [Motrin] 600 mg PO Q6HR PRN #60 tab PRN Reason: Mild Pain Or Fever >= 100.5 Continue Cji-Sisu-Enesf Acid [-U Capsule (formulary)] 1 cap PO DAILY Discharge Medication List Pnz-Vopu-Uvonz Acid [-U Capsule (formulary)] 1 cap PO DAILY 03/15 [History] Ibuprofen [Motrin] 600 mg PO Q6HR PRN #60 tab 05/06/18 [Rx] Follow up Appointment(s)/Referral(s): Catherine Dyer DO [Doctor of Osteopathic Medicine] - 1 Week Activity/Diet/Wound Care/Special Instructions: Instructions 1. Do not begin any exercise program for 3 weeks. 2. Do not resume sexual relations for 3 weeks or longer if uncomfortable. 3. You may take tub baths or showers at any time. 4. You may use tampons if desired after 3 weeks. 5. Keep the area of episiotomy (stitches) clean and dry. 6. If you are not nursing, wear a good fitting, supportive bra during the day and limit fluid intake for at least 1 week to prevent breast engorgement. 7. Call the office, [phone], within the next week to make appointment for your 6 week checkup if it has not already been made. 8. Report any of the following occurrences to the doctor promptly: a. Heavy, excessive bleeding b. Chills, fever c. Burning or frequency of urination d. Pain or redness and breasts if nursing e. Increasing pain or swelling in episiotomy (stitches). Discharge Disposition: HOME SELF-CARE
[2018-05-06 16:10] VITALS: BP 125/80; PULSE 68; TEMP 98.6
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
[2018-05-08 05:04] LABS: Herpes simplex I and/or II IgM 1.12 INDEX (<=0.90); Toxoplasma Antibody (IgM) <3.0 AU/mL (<8.0)
== END 2018-05-06 17:15 | disposition home or self-care (01) | DRG 775 ==
LOC: FBPOP 16:51 → 4FBP 18:02
PROVIDERS: ADMIT Obstetrics & Gynecology; ATTEND Obstetrics & Gynecology
PROC: 10E0XZZ Delivery of Products of Conception, External Approach (ICD-10-PCS; principal; 2018-05-04)
PROC: 3E0P7VZ Introduction of Hormone into Female Reproductive, Via Natural or Artificial Opening (ICD-10-PCS; 2018-05-04)
PROC: 10907ZC Drainage of Amniotic Fluid, Therapeutic from Products of Conception, Via Natural or Artificial Opening (ICD-10-PCS; 2018-05-04)
PROC: 3E033VJ Introduction of Other Hormone into Peripheral Vein, Percutaneous Approach (ICD-10-PCS; 2018-05-04)
DX: O36.4XX0 Maternal care for intrauterine death, not applicable or unspecified (principal); R45.851 Suicidal ideations; Z37.1 Single stillbirth; O69.1XX0 Labor and delivery complicated by cord around neck, with compression, not applicable or unspecified; O77.0 Labor and delivery complicated by meconium in amniotic fluid; O99.52 Diseases of the respiratory system complicating childbirth; J45.909 Unspecified asthma, uncomplicated; O99.344 Other mental disorders complicating childbirth; F43.20 Adjustment disorder, unspecified; Z3A.31 31 weeks gestation of pregnancy; Z86.59 Personal history of other mental and behavioral disorders; Z91.048 Other nonmedicinal substance allergy status; Z91.5 Personal history of self-harm; Z62.810 Personal history of physical and sexual abuse in childhood
CPT/HCPCS: 76805; 76815; 85025; 86644; 86645; 86694; 86695; 86696; 86762; 86777; 86778; 87070; 87075; 87205; 88307; 90471; 90707; 99213

== ENCOUNTER 2018-06-19 10:39 | Emergency (ER) | payer OTHER ==
[2018-06-19 10:49] VITALS: BP 118/73; PULSE 69; RESP 18; TEMP 98.1
--- NOTE | 2018-06-19 11:36 | ED ---
General Adult HPI - General Chief complaint: Chest Pain Stated complaint: chest pain Source: patient Mode of arrival: ambulatory Limitations: no limitations - History of Present Illness Initial comments: Dictation was produced using [employer] dictation software. please excuse any grammatical, word or spelling errors. Chief Complaint: 22-year-old female presents with episode of reflux today. History of Present Illness: Patient was at work today when she began experiencing some chest discomfort. Patient has a past medical history of reflux. States that she also had these pains in her throat. Patient has had the symptoms in the past. She denies taking any medications for reflux. She reports that her symptoms are typical of her usual reflux. Denies any family history of cardiac disease. Patient denies any medical problems. Denies any tobacco use. Denies any symptoms at this time. She was told by her boss that he could be from the fumes at work. The ROS documented in this emergency department record has been reviewed and confirmed by me. Those systems with pertinent positive or negative responses have been documented in the HPI. All other systems are other negative and/or noncontributory. - Related Data Previous Rx's Medication Instructions Recorded Famotidine [Pepcid] 40 mg PO HS #20 tab 06/19/18 Allergies Allergy/AdvReac Type Severity Reaction Status Date / Time pollen extracts Allergy Swelling Verified 06/19/18 11:24 dust Allergy Swelling Uncoded 05/04/18 16:59 pet hair Allergy Anaphylaxis Uncoded 05/04/18 16:59 Review of Systems ROS Statement: Those systems with pertinent positive or pertinent negative responses have been documented in the HPI. ROS Other: All systems not noted in ROS Statement are negative. Past Medical History Past Medical History: Asthma Additional Past Medical History / Comment(s): Hx concussion 2 yrs ago. Patient' s first was an elective . History of Any Multi-Drug Resistant Organisms: None Reported Past Surgical History: No Surgical Hx Reported Past Anesthesia/Blood Transfusion Reactions: No Reported Reaction Past Psychological History: No Psychological Hx Reported Smoking Status: Never smoker Past Alcohol Use History: None Reported Past Drug Use History: None Reported - Past Family History Mother Family Medical History: No Reported History Additional Family Medical History / Comment(s): Bipolar, Schizopphrenic, ADHD. Brother(s) Family Medical History: No Reported History Additional Family Medical History / Comment(s): Schizophrenic General Exam - General Exam Comments Initial Comments: PHYSICAL EXAM: General Impression: Alert and oriented x3, not in acute distress HEENT: Normocephalic atraumatic, extra-ocular movements intact, pupils equal and reactive to light bilaterally, mucous membranes moist. Cardiovascular: Heart regular rate and rhythm, S1&S2 audible, no murmurs, rubs or gallops Chest: Lungs clear to auscultation bilaterally, no rhonchi, no wheeze, no rales Abdomen: Bowel sounds present, abdomen soft, non-tender, non-distended, no organomegaly Musculoskeletal: Pulses present and equal in all extremities, no peripheral edema Motor: Power 5/5 bilaterally, no focal deficits noted Neurological: CN II-XII grossly intact, no focal motor or sensory deficits noted Skin: Intact with no visualized rashes Psych: Normal affect and mood Limitations: no limitations Course Vital Signs 06/19/18 10:46 Temperature 98.1 F Pulse Rate 69 Respiratory 18 Rate Blood Pressure 118/73 O2 Sat by Pulse 100 Oximetry Medical Decision Making - Medical Decision Making ED course: 22-year-old female with clinical presentation consistent with gastroesophageal reflux. Patient is 22 without any medical problems. No family history of cardiac disease or sudden before the age of 45. As upon arrival are within acceptable limits. Patient has any shortness of breath or lower extremity symptoms. HPI not suspicious for acute coronary syndrome. EKGs benign. Physical examination is otherwise benign. GI cocktail was offered patient or she declined. Prescription provided for Pepcid. She is advised follow-up with primary care physician. She states she doesn't have one. Patient given referral to outpatient primary care physician. EKG Interpretation: A 12 lead EKG was obtained. It was interpreted by myself and attending physician. There is a P wave before every QRS complex. Rate is 64. Rhythm is normal sinus rhythm, MD interval 184, care is 92, QTC 427. QT is not prolonged. No ST segment depression or elevation. . Overall, this EKG is unremarkable Disposition Clinical Impression: Chest pain Disposition: HOME SELF-CARE Condition: Good Instructions: Chest Pain (ED) Prescriptions: Famotidine [Pepcid] 40 mg PO HS #20 tab Is patient prescribed a controlled substance at d/c from ED?: No Referrals: None,Stated [Primary Care Provider] - 1-2 days Kirk Salazar MD [REFERRING] - 1-2 days Time of Disposition: 11:36
== END 2018-06-19 11:43 | disposition home or self-care (01) ==
LOC: EC 10:39
DX: R07.89 Other chest pain (principal); Z91.048 Other nonmedicinal substance allergy status; Z91.09 Other allergy status, other than to drugs and biological substances
CPT/HCPCS: 93005; 99284

== ENCOUNTER 2018-08-11 21:28 | Observation (INO) | payer OTHER ==
[2018-08-11] MEDS ORDERED: MORPHINE SULFATE 4 MG/ML SYRINGE IV STA (22:18)
[2018-08-11] MEDS ORDERED: ONDANSETRON 4 MG/2 ML VIAL IVP STA (22:18)
[2018-08-11] MEDS ORDERED: SODIUM CHLORIDE 0.9% 500 ML 500 ML IV STA (22:18)
--- NOTE | 2018-08-11 23:03 | ED ---
Abdominal Pain HPI - General Chief Complaint: Abdominal Pain Stated Complaint: Abd Pain Time Seen by Provider: 08/11/18 21:53 Source: EMS Mode of arrival: EMS Limitations: no limitations - History of Present Illness Initial Comments: 22-year-old female patient presents to the emergency department today for evaluation of midepigastric abdominal pain that radiates through to her back. Patient states that she has been having this pain on and off for the last couple of days but returned tonight and was much worse. Patient describes the pain is a sharp stabbing pain. States it worsens when she takes a deep breath. Patient states that she has been nauseated and has been vomiting with this. States earlier in the day she is able to eat and drink without difficulty. States that this episode of pain did start shortly after eating. She denies any fever, chills, constipation, diarrhea, hematuria, dysuria, urinary frequency , or urinary urgency. She is unsure if she is . She denies any history of abdominal surgeries or procedures. Patient denies any recent rash, shortness breath, chest pain, numbness, tingling, dizziness, weakness, hematuria , dysuria, urinary urgency, urinary frequency, headache, visual changes, or any other complaints. - Related Data Home Medications Medication Instructions Recorded Confirmed No Known Home Medications 08/11/18 08/11/18 Allergies Allergy/AdvReac Type Severity Reaction Status Date / Time pollen extracts Allergy Swelling Verified 08/11/18 21:48 dust Allergy Swelling Uncoded 08/11/18 21:41 pet hair Allergy Anaphylaxis Uncoded 08/11/18 21:41 Review of Systems ROS Statement: Those systems with pertinent positive or pertinent negative responses have been documented in the HPI. ROS Other: All systems not noted in ROS Statement are negative. Past Medical History Past Medical History: Asthma Additional Past Medical History / Comment(s): Hx concussion, elective , History of Any Multi-Drug Resistant Organisms: None Reported Past Surgical History: No Surgical Hx Reported Past Anesthesia/Blood Transfusion Reactions: No Reported Reaction Past Psychological History: Anxiety, Depression Smoking Status: Never smoker Past Alcohol Use History: None Reported Past Drug Use History: Marijuana - Past Family History Mother Family Medical History: No Reported History Additional Family Medical History / Comment(s): Bipolar, Schizopphrenic, ADHD. Brother(s) Family Medical History: No Reported History Additional Family Medical History / Comment(s): Schizophrenic General Exam Limitations: no limitations General appearance: alert, in no apparent distress, other (This is a well- developed, well-nourished adult female patient in no acute distress. Vital signs upon presentation are temperature 98.0F, pulse 75, respirations 18, blood pressure 131/78, pulse ox 100% on room air.) Eye exam: Present: normal appearance, PERRL, EOMI. Absent: scleral icterus, conjunctival injection, periorbital swelling ENT exam: Present: normal exam, normal oropharynx, mucous membranes moist Respiratory exam: Present: normal lung sounds bilaterally. Absent: respiratory distress, wheezes, rales, rhonchi, stridor Cardiovascular Exam: Present: regular rate, normal rhythm, normal heart sounds. Absent: systolic murmur, diastolic murmur, rubs, gallop, clicks GI/Abdominal exam: Present: soft, tenderness (Tenderness over the midepigastric and right upper quadrant abdomen.), normal bowel sounds. Absent: distended, guarding, rebound, rigid Back exam: Present: normal inspection. Absent: CVA tenderness (R), CVA tenderness (L) Neurological exam: Present: alert, oriented X3, CN II-XII intact Psychiatric exam: Present: normal affect, normal mood Skin exam: Present: warm, dry, intact, normal color. Absent: rash Course Vital Signs 08/11/18 08/12/18 21:36 03:17 Temperature 98.0 F 98.1 F Pulse Rate 75 63 Respiratory 18 18 Rate Blood Pressure 131/78 119/79 O2 Sat by Pulse 100 98 Oximetry Medical Decision Making - Medical Decision Making 22-year-old female patient presented to the emergency department today with complaints of midepigastric and right upper quadrant abdominal pain and tenderness. Pain increased significantly with deep breathing. Patient was quite tender over the midepigastric region and right upper quadrant. Positive [place] Sign. Labs reviewed and did reveal elevated AST of 341, ALT at 280, alkaline phosphatase at 244. Ultrasound of the right upper quadrant was obtained and did show mildly enlarged liver, dilated gallbladder with presence of cholelithiasis. Gallbladder wall was not thickened. Patient did have several episodes of vomiting throughout the day. Pain did improve with administration of morphine. Patient will be admitted to Dr. Small. - Lab Data Result diagrams: 08/11/18 23:04 08/11/18 23:04 Lab Results 08/11/18 08/11/18 08/11/18 Range/Units 23:04 23:04 23:04 WBC 6.8 (3.8-10.6) k/uL RBC 4.46 (3.80-5.40) m/uL Hgb 11.3 L (11.4-16.0) gm/dL Hct 36.2 (34.0-46.0) % MCV 81.3 (80.0-100.0) fL MCH 25.5 (25.0-35.0) pg MCHC 31.3 (31.0-37.0) g/dL RDW 16.1 H (11.5-15.5) % Plt Count 290 (150-450) k/uL Neutrophils % 74 % Lymphocytes % 20 % Monocytes % 4 % Eosinophils % 2 % Basophils % 0 % Neutrophils # 5.0 (1.3-7.7) k/uL Lymphocytes # 1.3 (1.0-4.8) k/uL Monocytes # 0.2 (0-1.0) k/uL Eosinophils # 0.1 (0-0.7) k/uL Basophils # 0.0 (0-0.2) k/uL Anisocytosis Slight Sodium 140 (137-145) mmol/L Potassium 4.2 (3.5-5.1) mmol/L Chloride 107 (98-107) mmol/L Carbon Dioxide 25 (22-30) mmol/L Anion Gap 8 mmol/L BUN 8 (7-17) mg/dL Creatinine 0.76 (0.52-1.04) mg/dL Est GFR (CKD-EPI)AfAm >90 (>60 ml/min/1.73 sqM) Est GFR (CKD-EPI)NonAf >90 (>60 ml/min/1.73 sqM) Glucose 96 (74-99) mg/dL Calcium 9.4 (8.4-10.2) mg/dL Total Bilirubin 0.8 (0.2-1.3) mg/dL AST 341 H (14-36) U/L ALT 280 H (9-52) U/L Alkaline Phosphatase 244 H (38-126) U/L Total Protein 6.8 (6.3-8.2) g/dL Albumin 3.8 (3.5-5.0) g/dL Amylase 40 (30-110) U/L Lipase 102 (23-300) U/L Urine Color Yellow Urine Appearance Clear (Clear) Urine pH 7.5 (5.0-8.0) Ur Specific [place] 1.013 (1.001-1.035) Urine Protein Negative (Negative) Urine Glucose (UA) Negative (Negative) Urine Ketones Negative (Negative) Urine Blood Negative (Negative) Urine Nitrite Negative (Negative) Urine Bilirubin Negative (Negative) Urine Urobilinogen 3.0 (<2.0) mg/dL Ur Leukocyte Esterase Negative (Negative) Urine HCG, Qual (Not Detectd) 08/11/18 Range/Units 23:04 WBC (3.8-10.6) k/uL RBC (3.80-5.40) m/uL Hgb (11.4-16.0) gm/dL Hct (34.0-46.0) % MCV (80.0-100.0) fL MCH (25.0-35.0) pg MCHC (31.0-37.0) g/dL RDW (11.5-15.5) % Plt Count (150-450) k/uL Neutrophils % % Lymphocytes % % Monocytes % % Eosinophils % % Basophils % % Neutrophils # (1.3-7.7) k/uL Lymphocytes # (1.0-4.8) k/uL Monocytes # (0-1.0) k/uL Eosinophils # (0-0.7) k/uL Basophils # (0-0.2) k/uL Anisocytosis Sodium (137-145) mmol/L Potassium (3.5-5.1) mmol/L Chloride (98-107) mmol/L Carbon Dioxide (22-30) mmol/L Anion Gap mmol/L BUN (7-17) mg/dL Creatinine (0.52-1.04) mg/dL Est GFR (CKD-EPI)AfAm (>60 ml/min/1.73 sqM) Est GFR (CKD-EPI)NonAf (>60 ml/min/1.73 sqM) Glucose (74-99) mg/dL Calcium (8.4-10.2) mg/dL Total Bilirubin (0.2-1.3) mg/dL AST (14-36) U/L ALT (9-52) U/L Alkaline Phosphatase (38-126) U/L Total Protein (6.3-8.2) g/dL Albumin (3.5-5.0) g/dL Amylase (30-110) U/L Lipase (23-300) U/L Urine Color Urine Appearance (Clear) Urine pH (5.0-8.0) Ur Specific [place] (1.001-1.035) Urine Protein (Negative) Urine Glucose (UA) (Negative) Urine Ketones (Negative) Urine Blood (Negative) Urine Nitrite (Negative) Urine Bilirubin (Negative) Urine Urobilinogen (<2.0) mg/dL Ur Leukocyte Esterase (Negative) Urine HCG, Qual Not Detected (Not Detectd) - Radiology Data Radiology results: report reviewed Limited ultrasound of the abdomen was obtained, right upper quadrant. Report was reviewed in its entirety. Impression by Dr. Ellis shows multiple gallstones. No dilated ducts. Borderline dilated gallbladder. No free fluid. Disposition Clinical Impression: Cholelithiasis, Elevated LFTs Disposition: ADMITTED IP TO THIS [facility] Condition: Serious Referrals: None,Stated [Primary Care Provider] - 1-2 days Decision to Admit Reason: Admit from EC Decision Date: 08/12/18 Decision Time: 03:40
[2018-08-11 23:24] LABS: Appearance,Urine Clear (Clear); Bilirubin,Urine Negative (Negative); Blood,Urine Negative (Negative); Color,Urine Yellow; Glucose,Urine (UA) Negative (Negative); Ketones,Urine Negative (Negative); Leukocyte Esterase,Urine Negative (Negative); Nitrite,Urine Negative (Negative); PH, Urine 7.5 (5.0-8.0); Protein,Urine Negative (Negative); Specific Gravity,Urine 1.013 (1.001-1.035)
[2018-08-11 23:37] LABS: ALT 280 U/L (9-52); AST 341 U/L (14-36); Albumin 3.8 g/dL (3.5-5.0); Alkaline Phosphatase 244 U/L (38-126); Amylase 40 U/L (30-110); Anion Gap 8 mmol/L; Blood Urea Nitrogen 8 mg/dL (7-17); Calcium 9.4 mg/dL (8.4-10.2); Carbon Dioxide 25 mmol/L (22-30); Chloride 107 mmol/L (98-107); Glucose 96 mg/dL (74-99); Lipase 102 U/L (23-300); Potassium 4.2 mmol/L (3.5-5.1); Sodium 140 mmol/L (137-145); Total Bilirubin 0.8 mg/dL (0.2-1.3); Total Protein 6.8 g/dL (6.3-8.2)
[2018-08-11 23:45] LABS: Anisocytosis Slight; Basophils % (A) 0 %; Eosinophils # (A) 0.1 k/uL (0-0.7); Eosinophils % (A) 2 %; HCT 36.2 % (34.0-46.0); HGB 11.3 gm/dL (11.4-16.0); Lymphocytes # (A) 1.3 k/uL (1.0-4.8); Lymphocytes % (A) 20 %; MCH 25.5 pg (25.0-35.0); MCHC 31.3 g/dL (31.0-37.0); MCV 81.3 fL (80.0-100.0); Mean Platelet Volume 7.5; Monocytes # (A) 0.2 k/uL (0-1.0); Monocytes % (A) 4 %; Neutrophils % (A) 74 %; Platelet Count 290 k/uL (150-450); RBC 4.46 m/uL (3.80-5.40); RDW 16.1 % (11.5-15.5); WBC 6.8 k/uL (3.8-10.6)
[2018-08-12] MEDS ORDERED: MORPHINE SULFATE 4 MG/ML SYRINGE IVP STA (00:09)
--- NOTE | 2018-08-12 00:13 | US ---
EXAMINATION TYPE: US abdomen limited DATE OF EXAM: 08/11/2018 COMPARISON: NONE CLINICAL HISTORY: RUQ pain. Intermittent upper abdomen pain and N/V x couple days EXAM MEASUREMENTS: Liver Length: 18.1 cm Gallbladder Wall: 0.2 cm CBD: 0.7 cm Right Kidney: 9.2 x 4.7 x 5.4 cm Difficult and limited study due to patient body habitus and patient unable to take deep breath and hold due to increased pain Pancreas: visualized portions wnl, limited by overlying midline bowel gas Liver: mildly enlarged Gallbladder: borderline hydropic, cholelithiasis, wall measures wnl Evidence for sonographic [place]'s sign: yes CBD: dilated Right Kidney: wnl IMPRESSION: Multiple gallstones. No dilated ducts. Borderline dilated gallbladder. No free fluid.
--- NOTE | 2018-08-12 03:06 | CDI ---
Documentation Clarification OP Dear Kathia EL, Please do addendum to ED report for MDM and clinical impression. Thank you Ofelia Voss Crm Marketing Specialist If you have any question, Please contact banking center manager at [phone] [facility]
[2018-08-12] MEDS ORDERED: NALOXONE 0.4 MG/ML 1 ML VIAL IV PRN (03:36)
[2018-08-12] MEDS ORDERED: MORPHINE SULFATE 4 MG/ML SYRINGE IV PRN (03:36)
[2018-08-12] MEDS: SODIUM CHLORIDE 0.9% 1,000 ML IV SCH ×2 (03:44→20:31)
[2018-08-12] MEDS ORDERED: AMPICILLIN-SULBACTAM 3 GM in SODIUM CHLORIDE 0.9% 100 ML IVPB STA (04:00)
[2018-08-12 05:14] VITALS: BMI 47.2
[2018-08-12 10:01] LABS: ALT 359 U/L (9-52); AST 386 U/L (14-36); Albumin 3.4 g/dL (3.5-5.0); Alkaline Phosphatase 253 U/L (38-126); Anion Gap 4 mmol/L; Blood Urea Nitrogen 7 mg/dL (7-17); Calcium 9.1 mg/dL (8.4-10.2); Carbon Dioxide 27 mmol/L (22-30); Chloride 110 mmol/L (98-107); Glucose 97 mg/dL (74-99); Potassium 4.7 mmol/L (3.5-5.1); Sodium 141 mmol/L (137-145); Total Bilirubin 1.3 mg/dL (0.2-1.3); Total Protein 6.4 g/dL (6.3-8.2)
[2018-08-12] MEDS ORDERED: INDOMETHACIN 50MG SUPPOSITORY RECTAL STA (12:06)
[2018-08-12] MEDS ORDERED: ONDANSETRON 4 MG/2 ML VIAL ONE (12:13)
[2018-08-12] MEDS ORDERED: PROPOFOL 10 MG/ML 20 ML VIAL IV ONE (12:13)
[2018-08-12] MEDS ORDERED: fentaNYL (PF) 50 MCG/ML 2 ML AMP ONE (12:13)
[2018-08-12] MEDS ORDERED: SUCCINYLCHOLINE CHLORIDE 100 MG/5 ML SYR IV ONE (12:13)
[2018-08-12] MEDS ORDERED: GLUCAGON 1 MG/ML VIAL ONE (12:13)
[2018-08-12] MEDS ORDERED: LIDOCAINE 1% INJ 10MG/ML (20 ML MDV) ONE (12:13)
[2018-08-12] MEDS ORDERED: DEXAMETHASONE SOD PHOS (MDV) 100 MG/10 ML VIAL ONE (12:13)
[2018-08-12] MEDS ORDERED: MIDAZOLAM 2 MG/2 ML VIAL ONE (12:13)
[2018-08-12] MEDS ORDERED: GLYCOPYRROLATE 0.2 MG/ML 2 ML VIAL ONE (12:13)
[2018-08-12] MEDS ORDERED: PHENYLEPHRINE-0.9% NACL SYG 1 MG/10 ML SYRINGE ONE (12:13)
[2018-08-12] MEDS ORDERED: IV FLUID CONTINUATION 600 ML IV ONE (12:16)
--- NOTE | 2018-08-12 12:21 | P.CONS ---
History of Present Illness - Reason for Consult Consult date: 08/12/18 Choledocholithiasis Requesting physician: Johnson Small - Chief Complaint Abdominal pain - History of Present Illness The patient is a very pleasant 22-year-old female with no significant medical history who presented to the hospital with complaints of abdominal pain. Per the patient this was her second episode of abdominal pain. She reports pain as being located in the epigastric region and severe in intensity. Per the patient the first episode happened a few days ago and lasted approximately 30 minutes in duration. The second episode which occurred was stronger in intensity and lasted hours prior to the patient presenting to the hospital. She had associated nausea and vomiting. She does report a familial history of gallstones. On presentation to the hospital the patient was noted to have elevation in her liver enzymes which trended up on repeat study with total bilirubin going from 0.8-1.3, alkaline phosphatase 253, AST 386 and ALTs 359. Ultrasound was significant for multiple gallstones. Review of Systems REVIEW OF SYSTEMS: CONSTITUTIONAL: Denies any fevers, chills, weight change or fatigue. CARDIOVASCULAR: Denies any chest pain, palpitations high or low blood pressures RESPIRATORY: Denies any shortness of breath, hemoptysis or cough. GENITOURINARY: No dysuria or hematuria. MUSCULOSKELETAL: No weakness reported. SKIN: Denies any new rashes or lesions, jaundice or pallor. PSYCHIATRIC: Denies any depression or anxiety. NEUROLOGY: Denies headache, denies any new focal deficits. EARS/NOSE/THROAT: No recent hearing change, congestion, nasal discharge or sore throat. EYES: No pain in eyes, discharge or change in vision. GASTROINTESTINAL: As per HPI. Past Medical History Past Medical History: Asthma Additional Past Medical History / Comment(s): Hx concussion, elective , History of Any Multi-Drug Resistant Organisms: None Reported Past Surgical History: No Surgical Hx Reported Past Anesthesia/Blood Transfusion Reactions: No Reported Reaction Smoking Status: Never smoker Additional History: Family history: Does report history of gallstones and family members. - Past Family History Mother Family Medical History: No Reported History Additional Family Medical History / Comment(s): Bipolar, Schizopphrenic, ADHD. Brother(s) Family Medical History: No Reported History Additional Family Medical History / Comment(s): Schizophrenic Medications and Allergies Home Medications Medication Instructions Recorded Confirmed Type No Known Home Medications 08/11/18 08/12/18 History Allergies Allergy/AdvReac Type Severity Reaction Status Date / Time pollen extracts Allergy Swelling Verified 08/12/18 05:06 dust Allergy Swelling Uncoded 08/12/18 05:06 pet hair Allergy Anaphylaxis Uncoded 08/12/18 05:06 Physical Exam Vitals: Vital Signs Temp Pulse Pulse Resp BP BP Pulse Ox 08/12/18 07:15 98.3 F 60 18 123/75 100 08/12/18 05:35 16 08/12/18 05:11 98.5 F 60 16 105/64 100 08/12/18 03:17 98.1 F 63 18 119/79 98 08/11/18 21:36 98.0 F 75 18 131/78 100 Intake and Output 08/11/18 08/12/18 08/12/18 22:59 06:59 14:59 Other: # Voids 1 Weight 124.738 kg 124.7 kg On physical examination, patient appears comfortable in no apparent distress. HEAD: Normocephalic, atraumatic. EYES: No scleral icterus. No conjunctival injection. MOUTH: No lesions, tongue midline. NECK: Trachea midline, no gross abnormalities. CHEST: Clear to auscultation with no wheezing or rhonchi appreciated. HEART: Regular rate and rhythm. ABDOMEN: Soft, obese. Bowel sounds are positive. No organomegaly. No guarding or rigidity. EXTREMITIES: No pedal edema. SKIN: No rashes, no jaundice. NEUROLOGIC: Alert and oriented x3. No focal deficits. Results CBC & Chem 7: 08/11/18 23:04 08/12/18 09:37 Labs: Abnormal Lab Results - Last 24 Hours (Table) 08/11/18 08/11/18 08/12/18 Range/Units 23:04 23:04 09:37 Hgb 11.3 L (11.4-16.0) gm/dL RDW 16.1 H (11.5-15.5) % Chloride 110 H (98-107) mmol/L AST 341 H 386 H (14-36) U/L ALT 280 H 359 H (9-52) U/L Alkaline Phosphatase 244 H 253 H (38-126) U/L Albumin 3.4 L (3.5-5.0) g/dL US - abdomen: report reviewed (Ultrasound of the abdomen significant for gallstones) Assessment and Plan (1) Elevated LFTs Narrative/Plan: Elevated liver enzymes with both a cholestatic and hepatocellular picture which have trended up since admission, with total bilirubin 1.3, alkaline phosphatase 253, AST 386 and ALP 359 highly suggestive of choledocholithiasis in the setting of ultrasound showing cholelithiasis with a dilated gallbladder. Current Visit: Yes Status: Acute Code(s): R94.5 - ABNORMAL RESULTS OF LIVER FUNCTION STUDIES SNOMED Code(s): 718509899 (2) Cholelithiasis Current Visit: Yes Status: Acute Code(s): K80.20 - CALCULUS OF GALLBLADDER W /O CHOLECYSTITIS W/O OBSTRUCTION SNOMED Code(s): 641032607 Plan: Supportive care Nothing by mouth Currently on Unasyn Indocin preprocedure Plan on an urgent ERCP for suspected choledocholithiasis given elevation in total bilirubin, ALTs and typical pain Plan of care has been discussed with the patient and her grandmother at length, and they understand the risks benefits and side effects of the treatment plan and are in agreement with proceeding with the ERCP with timing of cholecystectomy per the surgical service Appreciate surgical recommendations Thank you for allowing us to participate in the care of this patient we will continue to follow
[2018-08-12] MEDS ORDERED: LACTATED RINGERS 1,000 ML IV ONE (12:56)
[2018-08-12] MEDS ORDERED: INDOMETHACIN 50MG SUPPOSITORY RECTAL ONE (12:58)
[2018-08-12] MEDS ORDERED: IOPAMIDOL-300 50ML BTL MISCELLANE ONE (14:29)
--- NOTE | 2018-08-12 14:58 | FL ---
EXAMINATION TYPE: FL ERCP DATE OF EXAM: 08/12/2018 CLINICAL HISTORY: Possible CBD stone. Abnormal ultrasound. TECHNIQUE: Fluoroscopy. COMPARISON: None. FINDINGS: Fluoroscopic guidance was provided during ERCP procedure performed by Dr. Vargas. A tota l of 3 minutes 50 seconds of fluoroscopic time was utilized during the procedure and one spot fluoros copic image is saved. Single image saved is of upper to mid abdomen without definitive contrast opaci fication of the biliary system. Please refer to procedure note for further details as I was not prese nt nor performed procedure. IMPRESSION: As Above.
[2018-08-12] MEDS: ONDANSETRON 4 MG/2 ML VIAL IVP PRN ×2 (15:00→15:49)
[2018-08-12] MEDS ORDERED: PROMETHAZINE INJ 25 MG/ML 1 ML VIAL IVPB ONE (15:30)
[2018-08-12] MEDS ORDERED: diphenhydrAMINE 50 MG/ML 1 ML VIAL IVP ONE (15:45)
--- NOTE | 2018-08-12 16:00 | P.PCN ---
Date of Procedure: 08/12/18 Description of Procedure: Brief history: Patient is a 22 year-old pleasant lady scheduled for an ERCP as part of evaluation of abdominal pain and elevated serum transaminases which resulted in the patient presenting to the emergency department for further evaluation. Elevation in liver enzymes are both in a cholestatic and hepatocellular pattern with total bilirubin 1.2, and AST and ALTs in the 300s all of which were trending up after initial presentation. Procedure performed: ERCP, failed cannulation Preoperative diagnoses: Elevated bilirubin, elevated liver enzymes, cholelithiasis, right upper quadrant abdominal pain IV sedation per anesthesia Estimated blood loss: Minimal. Procedure: After informed consent was obtained from the patient and after the risks benefits and complications including bleeding perforation and pancreatitis explained in detail the patient was brought into the endoscopy unit. The patient was placed in prone position and IV conscious sedation was administered by anesthesia under continuous monitoring. The Olympus side-viewing duodenoscope was then inserted into the mouth and esophagus intubated without any difficulty. The scope was gradually advanced into the stomach and duodenum. The major papilla was identified without any difficulty. Multiple attempts were made to intubate the papilla which were unsuccessful. The case was aborted and the patient was sent back to her room for further evaluation with MRCP. Impression: 1. ERCP with failed cannulation. Recommendations: The findings of this examination were discussed with the patient as well as a family, including the patient's grandmother. Patient is okay for diet, low-fat and will be nothing by mouth after midnight for possible cholecystectomy. MRCP ordered to rule out choledocholithiasis, if positive the patient would benefit from referral to a tertiary center for ERCP with an advanced endoscopist. Trend liver enzymes. Will continue to follow. The case has been discussed with the consulting surgeon.
--- NOTE | 2018-08-12 16:46 | P.GSHP ---
History of Present Illness H&P Date: 08/12/18 22-year-old female seen at bedside just returned from having an attempted ERCP sitting up on the edge of the bed chief complaint is "feel like some things in my left eye". Patient's initial presentation was to the emergency room to be evaluated with a chief complaint of abdominal pain. Stated that the pain was worse with a deep breath Patient stated that she had been experiencing pain located in the epigastric area. First episode happened several days ago it was resolved within 30 minutes. Patient stated this current episode was more intense and lasted could not resolve on its own. Patient stated she felt nauseated and did vomit. Does give a history of having gallstones. In the emergency room the liver enzymes were noted to be elevated total bili 0.8 went up to 1.3 ultrasound was significant for multiple gallstones - Review of Systems Comment: Essentially unremarkable except as mentioned in the present illness Past Medical History Past Medical History: Asthma Additional Past Medical History / Comment(s): Hx concussion, elective , History of Any Multi-Drug Resistant Organisms: None Reported Past Surgical History: No Surgical Hx Reported Past Anesthesia/Blood Transfusion Reactions: No Reported Reaction Smoking Status: Never smoker - Past Family History Mother Family Medical History: No Reported History Additional Family Medical History / Comment(s): Bipolar, Schizopphrenic, ADHD. Brother(s) Family Medical History: No Reported History Additional Family Medical History / Comment(s): Schizophrenic Medications and Allergies Home Medications Medication Instructions Recorded Confirmed Type No Known Home Medications 08/11/18 08/12/18 History Allergies Allergy/AdvReac Type Severity Reaction Status Date / Time pollen extracts Allergy Swelling Verified 08/12/18 05:06 dust Allergy Swelling Uncoded 08/12/18 05:06 pet hair Allergy Anaphylaxis Uncoded 08/12/18 05:06 Surgical - Exam Vital Signs Temp Pulse Resp BP Pulse Ox 98.0 F 75 18 131/78 100 08/11/18 21:36 08/11/18 21:36 08/11/18 21:36 08/11/18 21:36 08/11/18 21:36 GENERAL APPEARANCE: 22-year-old female patient is alert, oriented, in no acute distress sitting up on the edge of the bed just returned from having an ERCP that was unsuccessful. VITAL SIGNS: Reviewed HEENT: Head is normocephalic and atraumatic. Pupils are equal and reactive. The nares are patent. Oropharynx is clear without lesions. NECK: Supple without lymphadenopathy. Traches midline. HEART: S1, S2. Regular rate and rhythm. No murmur denying chest pain LUNGS: No crackles or wheezes are heard. Adequate air movement bilaterally ABDOMEN: Soft, obese right upper quadrant abdominal discomfort mild tenderness, nondistended with good bowel sounds. No peritoneal signs. No palpable organomegaly or masses. EXTREMITIES: Normal skin color and turgor. No cyanosis, rash, ulceration, clubbing or edema. Radial pedal pulses are 2/4 bilaterally. NEUROLOGICAL: No focal deficits. Strength and sensation are grossly intact. Results - Labs 08/11/18 23:04 08/12/18 09:37 Abnormal Lab Results - Last 24 Hours (Table) 08/11/18 08/11/18 08/12/18 Range/Units 23:04 23:04 09:37 Hgb 11.3 L (11.4-16.0) gm/dL RDW 16.1 H (11.5-15.5) % Chloride 110 H (98-107) mmol/L AST 341 H 386 H (14-36) U/L ALT 280 H 359 H (9-52) U/L Alkaline Phosphatase 244 H 253 H (38-126) U/L Albumin 3.4 L (3.5-5.0) g/dL Diabetes panel 08/11/18 08/12/18 Range/Units 23:04 09:37 Sodium 140 141 (137-145) mmol/L Potassium 4.2 4.7 (3.5-5.1) mmol/L Chloride 107 110 H (98-107) mmol/L Carbon Dioxide 25 27 (22-30) mmol/L BUN 8 7 (7-17) mg/dL Creatinine 0.76 0.94 (0.52-1.04) mg/dL Glucose 96 97 (74-99) mg/dL Calcium 9.4 9.1 (8.4-10.2) mg/dL AST 341 H 386 H (14-36) U/L ALT 280 H 359 H (9-52) U/L Alkaline Phosphatase 244 H 253 H (38-126) U/L Total Protein 6.8 6.4 (6.3-8.2) g/dL Albumin 3.8 3.4 L (3.5-5.0) g/dL Calcium panel 08/11/18 08/12/18 Range/Units 23:04 09:37 Calcium 9.4 9.1 (8.4-10.2) mg/dL Albumin 3.8 3.4 L (3.5-5.0) g/dL Pituitary panel 08/11/18 08/12/18 Range/Units 23:04 09:37 Sodium 140 141 (137-145) mmol/L Potassium 4.2 4.7 (3.5-5.1) mmol/L Chloride 107 110 H (98-107) mmol/L Carbon Dioxide 25 27 (22-30) mmol/L BUN 8 7 (7-17) mg/dL Creatinine 0.76 0.94 (0.52-1.04) mg/dL Glucose 96 97 (74-99) mg/dL Calcium 9.4 9.1 (8.4-10.2) mg/dL Adrenal panel 08/11/18 08/12/18 Range/Units 23:04 09:37 Sodium 140 141 (137-145) mmol/L Potassium 4.2 4.7 (3.5-5.1) mmol/L Chloride 107 110 H (98-107) mmol/L Carbon Dioxide 25 27 (22-30) mmol/L BUN 8 7 (7-17) mg/dL Creatinine 0.76 0.94 (0.52-1.04) mg/dL Glucose 96 97 (74-99) mg/dL Calcium 9.4 9.1 (8.4-10.2) mg/dL Total Bilirubin 0.8 1.3 (0.2-1.3) mg/dL AST 341 H 386 H (14-36) U/L ALT 280 H 359 H (9-52) U/L Alkaline Phosphatase 244 H 253 H (38-126) U/L Total Protein 6.8 6.4 (6.3-8.2) g/dL Albumin 3.8 3.4 L (3.5-5.0) g/dL Assessment and Plan Assessment: Impression Present on admission right upper quadrant abdominal pain suspect due to cholelithiasis with dilated gallbladder Morbid obesity BMI 47 Positive family history of gallstones Ultrasound gallbladder show multiple gallstones no dilated Elevated liver enzymes, total bilirubin suggested of cholelithiasis in the setting of an ultrasound showing cholelithiasis with dilated gallbladder Plan Continue recommendations by GI service Pain control Repeat labs in the morning IV fluid for hydration DVT and GI prophylaxis Will follow with you IV Unasyn as ordered The above impression and plan of care have been discussed and directed by signing physician. Lizy Bourgeois nurse practitioner acting as scribe for signing physician.
[2018-08-12] MEDS: AMPICILLIN-SULBACTAM 3 GM in SODIUM CHLORIDE 0.9% 100 ML IVPB SCH ×2 (17:59→20:28)
--- NOTE | 2018-08-12 20:49 | MR ---
EXAMINATION TYPE: MR MRCP DATE OF EXAM: 08/12/2018 COMPARISON: ERCP HISTORY: choledocholithiasis TECHNIQUE: 3-D [id number] imaging was utilized to evaluate the biliary system. MRCP protocol was performed without intravenous contrast. FINDINGS: The exam is extremely limited by patient motion with multiple skipped slices. The exam was also terminated early secondary to patient becoming uncomfortable. Intrahepatic bile ducts are mildly prominent with no extrahepatic biliary ductal dilatation. The comm on bile duct measures approximately 4 mm and the common hepatic duct measures approximately 3 mm. Cho lelithiasis is noted in the cystic duct appears nondilated. The common bile duct at the pancreatic he ad measures up to 6 mm. No pancreatic ductal dilatation. Visualized portions of the liver, kidneys, spleen, pancreas, and adrenal glands are unremarkable. Julián g bases and subcutaneous tissues are also unremarkable. No dilated bowel. There is mild dropout of signal in the out of phase imaging of the hepatic parenchyma suggesting mild hepatic steatosis. IMPRESSION: 1. The exam is extremely limited by patient motion. Multiple slices or skipped. Within the visualized biliary system there is no filling defect or extra hepatic biliary ductal dilatation. There is only very minimal prominence of the intrahepatic biliary system. Cholelithiasis is seen with small gallsto agatha near the gallbladder neck. 2. Findings suggesting mild hepatic steatosis.
[2018-08-13] MEDS: AMPICILLIN-SULBACTAM 3 GM in SODIUM CHLORIDE 0.9% 100 ML IVPB SCH ×3 (05:45→19:59)
[2018-08-13] MEDS: SODIUM CHLORIDE 0.9% 1,000 ML IV SCH ×2 (05:49→22:15)
[2018-08-13 08:02] LABS: Albumin 3.6 g/dL (3.5-5.0); Bilirubin, Delta 0.4 mg/dL (0.0-0.2); Total Bilirubin 0.4 mg/dL (0.2-1.3); Total Protein 6.6 g/dL (6.3-8.2)
[2018-08-13] MEDS ORDERED: KETOROLAC 30 MG/ML 1 ML VIAL IVP PRN (11:05)
--- NOTE | 2018-08-13 11:27 | P.CONS ---
History of Present Illness - Reason for Consult Possible choledocholithiasis and ascending cholangitis - History of Present Illness 22-year-old pleasant female came in to hospital with right upper quadrant pain found to have elevated liver enzymes and was high suspicion for choledocholithiasis underwent ERCP although failed cannulation presently on Unasyn. Patient also underwent MRCP which showed dilated intrahepatic bile ducts. Patient is scheduled for cholecystectomy tomorrow. There is no clear evidence of cholecystitis at this time patient doesn't have any fever leukocytosis her nausea improved patient is on clear liquid diet at this time. Patient's abdominal pain significantly improved no upper quadrant tenderness Toledo's sign is negative at this time. Review of Systems REVIEW OF SYSTEMS: CONSTITUTIONAL: No fever, no malaise, no fatigue. HEENT: No recent visual problems or hearing problems. Denied any sore throat. CARDIOVASCULAR: No chest pain, orthopnea, PND, no palpitations, no syncope. PULMONARY: No shortness of breath, no cough, no hemoptysis. GASTROINTESTINAL: No diarrhea, no nausea, no vomiting, no abdominal pain. Normoactive bowel sounds. NEUROLOGICAL: No headaches, no weakness, no numbness. HEMATOLOGICAL: Denies any bleeding or petechiae. GENITOURINARY: Denies any burning micturition, frequency, or urgency. MUSCULOSKELETAL/RHEUMATOLOGICAL: Denies any joint pain, swelling, or any muscle pain. ENDOCRINE: Denies any polyuria or polydipsia. The rest of the 14-point review of systems is negative. Past Medical History Past Medical History: Asthma Additional Past Medical History / Comment(s): Hx concussion, elective , History of Any Multi-Drug Resistant Organisms: None Reported Past Surgical History: No Surgical Hx Reported Past Anesthesia/Blood Transfusion Reactions: No Reported Reaction Smoking Status: Never smoker - Past Family History Mother Family Medical History: No Reported History Additional Family Medical History / Comment(s): Bipolar, Schizopphrenic, ADHD. Brother(s) Family Medical History: No Reported History Additional Family Medical History / Comment(s): Schizophrenic Medications and Allergies Home Medications Medication Instructions Recorded Confirmed Type No Known Home Medications 08/11/18 08/12/18 History Allergies Allergy/AdvReac Type Severity Reaction Status Date / Time pollen extracts Allergy Swelling Verified 08/12/18 05:06 dust Allergy Swelling Uncoded 08/12/18 05:06 pet hair Allergy Anaphylaxis Uncoded 08/12/18 05:06 Physical Exam Vitals: Vital Signs Temp Pulse Resp BP BP Pulse Ox 08/13/18 07:25 98.2 F 58 L 17 148/97 100 08/13/18 04:00 18 08/13/18 00:00 98.1 F 53 L 18 94/57 100 08/12/18 20:00 65 18 127/84 99 08/12/18 16:25 98.1 F 64 18 141/91 99 08/12/18 15:55 67 16 157/90 99 08/12/18 15:40 61 16 159/81 98 08/12/18 15:25 68 16 155/87 98 08/12/18 15:10 67 16 149/87 100 08/12/18 14:54 59 L 16 150/91 100 08/12/18 14:39 97.5 F L 67 18 139/93 99 Intake and Output 08/12/18 08/13/18 08/13/18 22:59 06:59 14:59 Intake Total 550 Balance 550 Intake: IV 550 Other: # Voids 1 1 PHYSICAL EXAMINATION: GENERAL: The patient is alert and oriented x3, not in any acute distress. Well developed, well nourished. Obese HEENT: Pupils are round and equally reacting to light. EOMI. No scleral icterus. No conjunctival pallor. Normocephalic, atraumatic. No pharyngeal erythema. No thyromegaly. CARDIOVASCULAR: S1 and S2 present. No murmurs, rubs, or gallops. PULMONARY: Chest is clear to auscultation, no wheezing or crackles. ABDOMEN: Soft, nontender, nondistended, normoactive bowel sounds. No palpable organomegaly. MUSCULOSKELETAL: No joint swelling or deformity. EXTREMITIES: No cyanosis, clubbing, or pedal edema. NEUROLOGICAL: Gross neurological examination did not reveal any focal deficits. SKIN: No rashes. Results CBC & Chem 7: 08/11/18 23:04 08/12/18 09:37 Labs: Abnormal Lab Results - Last 24 Hours (Table) 08/13/18 Range/Units 06:54 Delta Bilirubin 0.4 H (0.0-0.2) mg/dL AST 129 H (14-36) U/L ALT 275 H (9-52) U/L Alkaline Phosphatase 265 H (38-126) U/L Microbiology - Last 24 Hours (Table) 08/12/18 04:05 Blood Culture - Preliminary Blood No Growth after 24 hours Assessment and Plan Plan: -Choledocholithiasis, low possibility of ascending cholangitis anyways patient is on Unasyn which is appropriate at this time which will be continued -Cholelithiasis: Patient will undergo cholecystectomy tomorrow: Toradol will valid to her pain medications and avoid opiates. And the patient was started on Pepcid as well -Obesity: Counseling was provided
--- NOTE | 2018-08-13 11:34 | P.PN ---
Subjective Progress Note Date: 08/13/18 Principal diagnosis: Abdominal pain elevated liver enzymes 22-year-old female admitted with acute abdominal pain cholelithiasis and elevated liver enzymes without jaundice status post attempted ERCP yesterday, cannulation unsuccessful. This morning LFTs have improved total bilirubin 0.4. AST 129. ALT 275. AP 265. Denies abdominal pain. MRCP reported within the visualized biliary system there is no filling defect or extra hepatic all her duct dilatation. Very minimal prominence of the intra-hepatic biliary system. Cholelithiasis is seen with small gallstones in the gallbladder neck and mild hepatic steatosis. She is scheduled for cholecystectomy tomorrow with general surgery. Afebrile. Objective - Vital Signs Vital signs: Vital Signs Temp 98.2 F 08/13/18 07:25 Pulse 58 L 08/13/18 07:25 Resp 17 08/13/18 07:25 BP 148/97 08/13/18 07:25 Pulse Ox 100 08/13/18 07:25 Intake & Output 08/12/18 08/13/18 08/13/18 18:59 06:59 18:59 Intake Total 1400 Balance 1400 Intake: IV 1400 Other: # Voids 1 1 - Exam General appearance: The patient is alert, oriented, in no acute distress. HET: Head is normocephalic and atraumatic. Pupils are equal and reactive. Oropharynx is clear without lesions. Neck: Supple without lymphadenopathy. Trachea midline. Heart: S1 S2. Regular rate and rhythm. Lungs: No crackles or wheezes are heard. Abdomen: Soft, nontender, nondistended with bowel sounds. No peritoneal signs. No palpable organomegaly or masses. Extremities: Normal skin color and turgor. No cyanosis, rash, ulceration, clubbing, or edema. Radial and pedal pulses are 2/4 bilaterally. Neurological: No focal deficits. Strength and sensation are grossly intact. - Labs CBC & Chem 7: 08/11/18 23:04 08/12/18 09:37 Labs: Abnormal Lab Results - Last 24 Hours (Table) 08/13/18 Range/Units 06:54 Delta Bilirubin 0.4 H (0.0-0.2) mg/dL AST 129 H (14-36) U/L ALT 275 H (9-52) U/L Alkaline Phosphatase 265 H (38-126) U/L Microbiology - Last 24 Hours (Table) 08/12/18 04:05 Blood Culture - Preliminary Blood No Growth after 24 hours Assessment and Plan (1) Abdominal pain Narrative/Plan: 22-year-old female admitted with acute abdominal pain elevated transaminases without jaundice cholelithiasis status post unsuccessful ERCP. MRCP reported no evidence of filling defect within the common bile duct cholelithiasis near gallbladder neck with biochemical improvement in transaminases. Current Visit: Yes Status: Acute Code(s): R10.9 - UNSPECIFIED ABDOMINAL PAIN SNOMED Code(s): 60069023 (2) Cholelithiasis Current Visit: Yes Status: Acute Code(s): K80.20 - CALCULUS OF GALLBLADDER W /O CHOLECYSTITIS W/O OBSTRUCTION SNOMED Code(s): 574786810 (3) Elevated LFTs Current Visit: Yes Status: Acute Code(s): R94.5 - ABNORMAL RESULTS OF LIVER FUNCTION STUDIES SNOMED Code(s): 755321738 Plan: 1. Diet per surgery. Patient is scheduled for OR tomorrow. Continue to monitor CMP on a daily basis. Assessment and plan a care discussed with Dr. Vargas
[2018-08-13] MEDS ORDERED: MORPHINE SULFATE 2 MG/ML SYRINGE IV PRN (12:34)
--- NOTE | 2018-08-13 12:35 | P.PN ---
Subjective Progress Note Date: 08/13/18 22-year-old female seen sitting up on the edge of the bed. Chief complaint this morning is "left eye is watery scratchy started after the procedure yesterday" currently patient is stating the abdominal pain is improved. Reports has tenderness still to the right lower quadrant Patient is status post attempted ERCP done yesterday not successful. The liver function studies have improved. MRCP report was reviewed no filling defect in the biliary system or extrahepatic duct dilatation. Cholelithiasis seen with small gallstones in the gallbladder neck and mild hepatic steatosis. Patient does wear the plan of care will be scheduled tomorrow for a lap cholecystectomy. Objective - Vital Signs Vital signs: Vital Signs Temp 98.2 F 08/13/18 07:25 Pulse 58 L 08/13/18 07:25 Resp 17 08/13/18 07:25 BP 148/97 08/13/18 07:25 Pulse Ox 100 08/13/18 07:25 Intake & Output 08/12/18 08/13/18 08/13/18 18:59 06:59 18:59 Intake Total 1400 Balance 1400 Intake: IV 1400 Other: # Voids 1 1 - Exam Physical exam 22-year-old female sitting up on his appearing in no acute distress reports left eye feels scratchy watery irritated Lungs adequate air movement bilaterally Heart S1-S2 audible regular Abdomen obese soft non-distended mild tenderness right lower quadrant no nausea no vomiting no stooling Extremities no edema - Labs CBC & Chem 7: 08/11/18 23:04 08/12/18 09:37 Labs: Abnormal Lab Results - Last 24 Hours (Table) 08/13/18 Range/Units 06:54 Delta Bilirubin 0.4 H (0.0-0.2) mg/dL AST 129 H (14-36) U/L ALT 275 H (9-52) U/L Alkaline Phosphatase 265 H (38-126) U/L Microbiology - Last 24 Hours (Table) 08/12/18 04:05 Blood Culture - Preliminary Blood No Growth after 24 hours Assessment and Plan Assessment: Impression Present on admission right upper quadrant abdominal pain suspect due to cholelithiasis with dilated gallbladder Morbid obesity BMI 47 Positive family history of gallstones Ultrasound gallbladder show multiple gallstones no dilated Elevated liver enzymes, total bilirubin suggested of cholelithiasis in the setting of an ultrasound showing cholelithiasis with dilated gallbladder Status post MRCP August 13 no filling defect or extrahepatic duct dilatation gallstones in the gallbladder neck and mild hepatic steatosis Present on admission right upper quadrant abdominal pain with elevated liver enzymes without jaundice cholelithiasis unsuccessful ERCP with MRCP showing no evidence of filling defect within the common bile duct cholelithiasis near gallbladder neck with improvement in the liver enzymes 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 Lizy Bourgeois nurse practitioner acting as scribe for signing physician.
[2018-08-13] MEDS: ERYTHROMYCIN 5 MG/GM OPHTH OINT 3.5 GM TUBE LEFT EYE SCH (18:50)
[2018-08-13] MEDS: FAMOTIDINE 20 MG TAB PO SCH (19:59)
[2018-08-14] MEDS: ERYTHROMYCIN 5 MG/GM OPHTH OINT 3.5 GM TUBE LEFT EYE SCH ×5 (00:53→20:59)
[2018-08-14] MEDS ORDERED: HYDROmorphone 1 MG/ML 1 ML SYRINGE IVP PRN ×2 (05:51→09:24)
[2018-08-14] MEDS: AMPICILLIN-SULBACTAM 3 GM in SODIUM CHLORIDE 0.9% 100 ML IVPB SCH ×3 (05:54→20:13)
[2018-08-14] MEDS: LACTATED RINGERS 1,000 ML IV SCH (06:12)
[2018-08-14] MEDS: ONDANSETRON 4 MG/2 ML VIAL IVP ONE ×2 (06:12→07:05)
[2018-08-14] MEDS ORDERED: IV FLUID CONTINUATION 1,000 ML IV ONE (06:58)
[2018-08-14] MEDS ORDERED: ROCURONIUM BROMIDE 10 MG/ML 10 ML VIAL IV ONE (07:59)
[2018-08-14] MEDS ORDERED: NEOSTIGMINE 1 MG/ML 10 ML VIAL ONE (07:59)
[2018-08-14] MEDS ORDERED: MIDAZOLAM 2 MG/2 ML VIAL ONE (07:59)
[2018-08-14] MEDS ORDERED: PROPOFOL 10 MG/ML 20 ML VIAL IV ONE (07:59)
[2018-08-14] MEDS ORDERED: SUCCINYLCHOLINE CHLORIDE VIAL 200 MG/10 ML VIAL IV ONE (07:59)
[2018-08-14] MEDS ORDERED: GLYCOPYRROLATE 0.2 MG/ML 2 ML VIAL ONE (07:59)
[2018-08-14] MEDS ORDERED: LIDOCAINE 1% INJ 10MG/ML (20 ML MDV) ONE (07:59)
[2018-08-14] MEDS ORDERED: fentaNYL (PF) 50 MCG/ML 2 ML AMP ONE (07:59)
[2018-08-14] MEDS ORDERED: BUPIVACAIN-EPI 0.25%-1:200,000 30 ML VIAL SQ ONE (08:25)
[2018-08-14] MEDS ORDERED: HYDROmorphone 1 MG/ML 1 ML SYRINGE IVP ONE (09:19)
[2018-08-14] MEDS ORDERED: ACETAMINOPHEN TAB 325 MG TAB PO PRN (09:24)
[2018-08-14] MEDS ORDERED: LACTATED RINGERS 1,000 ML IV ONE (09:24)
[2018-08-14] MEDS ORDERED: HYDROcodone/APAP 5-325MG 1 EACH TAB PO PRN (09:24)
[2018-08-14] MEDS ORDERED: NALOXONE 0.4 MG/ML 1 ML VIAL IV PRN (09:24)
--- NOTE | 2018-08-14 09:28 | P.OP ---
Date of Procedure: 08/14/18 Preoperative Diagnosis: Cholelithiasis Cholecystitis Postoperative Diagnosis: Lithiasis Cholecystitis Procedure(s) Performed: Laparoscopic cholecystectomy Anesthesia: KRISTYN Surgeon: Johnson Small Estimated Blood Loss (ml): 5 Pathology: other (gallbladder) Condition: stable Disposition: PACU Description of Procedure: The patient was placed on the operating table. The patient received a general endotracheal tube anesthesia. The patients abdomen was prepped and draped in the usual sterile fashion. Through an infraumbilical stab incision, the fascia of the anterior abdominal wall was grasped with a pair of Kochers and then the Veress needle was placed in the peritoneal cavity. Position of the Veress needle was confirmed with positive drop test. The abdomen was then insufflated. After adequate insufflation, the 10 mm trocar was placed in the peritoneal cavity. Following this the laparoscope was placed in the peritoneal cavity. The patient was placed in the head-up, right side up position and then a 5 mm trocar was placed in the right lateral and right subcostal position under direct visualization. A 8 mm trocar was placed in the epigastric position. The gallbladder was grasped in the fundus and infundibulum. Traction on the gallbladder was placed in the lateral and the cephalad positions. The triangle of Calot was visualized.. The cystic duct was bluntly dissected until the union of the cystic duct and common bile duct was seen. The cystic duct was then divided and sealed with the Harmonic scissors. A PDS Endoloop was then placed throughout the cystic duct stump. The cystic artery divided and sealed with the Harmonic scissors. The gallbladder was then removed from the liver bed using Harmonic scissors. The gallbladder was then extracted through the epigastric port site. Operative field was checked for any bleeding spots and Harmonic scissors was used to coagulate the liver bed. The abdomen was irrigated. The trocars were removed. The skin was closed using interrupted 3-0 Vicryl suture. Dermabond dressing were applied. The patient tolerated the procedure well.
[2018-08-14] MEDS: SODIUM CHLORIDE 0.9% 1,000 ML IV SCH ×2 (09:30→23:17)
[2018-08-14] MEDS: KETOROLAC 30 MG/ML 1 ML VIAL IVP SCH ×3 (12:07→20:55)
[2018-08-14] MEDS: FAMOTIDINE 20 MG TAB PO SCH ×3 (12:08→20:14)
[2018-08-14 12:23] LABS: ALT 175 U/L (9-52); AST 45 U/L (14-36); Albumin 3.5 g/dL (3.5-5.0); Alkaline Phosphatase 205 U/L (38-126); Anion Gap 7 mmol/L; Blood Urea Nitrogen 10 mg/dL (7-17); Calcium 9.4 mg/dL (8.4-10.2); Carbon Dioxide 29 mmol/L (22-30); Chloride 103 mmol/L (98-107); Glucose 89 mg/dL (74-99); Potassium 4.1 mmol/L (3.5-5.1); Sodium 139 mmol/L (137-145); Total Bilirubin 0.3 mg/dL (0.2-1.3); Total Protein 6.5 g/dL (6.3-8.2)
[2018-08-14] MEDS: ONDANSETRON 4 MG/2 ML VIAL IVP PRN (14:53)
[2018-08-14 18:34] LABS: Hepatitis A Antibody IgM Non-Reactive (Non-Reactive); Hepatitis B Core IgM Non-Reactive (Non-Reactive)
[2018-08-14] MEDS: DOCUSATE 100 MG CAP PO SCH (20:13)
[2018-08-14] MEDS ORDERED: METOCLOPRAMIDE 5 MG/ML 2 ML VIAL IVP PRN (20:16)
[2018-08-14 23:32] VITALS: RESP 16
[2018-08-15] MEDS: KETOROLAC 30 MG/ML 1 ML VIAL IVP SCH ×2 (04:18→12:02)
[2018-08-15] MEDS: AMPICILLIN-SULBACTAM 3 GM in SODIUM CHLORIDE 0.9% 100 ML IVPB SCH ×2 (05:18→12:49)
[2018-08-15] MEDS: LACTATED RINGERS 1,000 ML IV SCH (06:24)
[2018-08-15] MEDS: ERYTHROMYCIN 5 MG/GM OPHTH OINT 3.5 GM TUBE LEFT EYE SCH ×2 (06:24→12:54)
[2018-08-15] MEDS ORDERED: ENOXAPARIN 40 MG/0.4 ML SYRINGE SQ SCH (09:00)
[2018-08-15] MEDS: FAMOTIDINE 20 MG TAB PO SCH (12:02)
[2018-08-15] MEDS: DOCUSATE 100 MG CAP PO SCH (12:02)
[2018-08-15 12:24] VITALS: BP 116/71; PULSE 69; TEMP 98.6
--- NOTE | 2018-08-15 14:24 | P.PN ---
Subjective Progress Note Date: 08/15/18 CHIEF COMPLAINT: Status post cholecystectomy HISTORY OF PRESENT ILLNESS: The patient is a 22-year-old female status post cholecystectomy. Her abdominal pain has resolved. No active nausea and vomiting. PHYSICAL EXAM: VITAL SIGNS: Vital Signs Temp 98.6 F 08/15/18 12:00 Pulse 69 08/15/18 12:00 Resp 16 08/15/18 12:00 BP 116/71 08/15/18 12:00 Pulse Ox 98 08/15/18 12:00 Intake & Output 08/14/18 08/15/18 08/15/18 18:59 06:59 18:59 Intake Total 600 Output Total 1305 Balance -705 Weight 124.7 kg Intake: IV 600 Output: Urine 1300 Estimated Blood Loss 5 Other: Voiding Method Toilet Toilet Toilet # Voids 3 1 GENERAL: Well-developed in no acute distress. HEENT: No sclera icterus. Extraocular movements grossly intact. Moist buccal mucosa. Head is atraumatic, normocephalic. Hears conversational speech. No nasal drainage. NECK: Supple without lymphadenopathy. CHEST: Non-labored respirations and equal bilateral excursions. CARDIOVASCULAR: Regular rate with regular rhythm. ABDOMEN: Incisions clean dry and intact. Soft. Nondistended. No peritonitis. MUSCULOSKELETAL: No clubbing, cyanosis or edema. NEUROLOGIC: No focal or lateralizing signs. Cranial nerves II through XII grossly intact. PSYCH: Alert and oriented to person, place and time. SKIN: Well perfused. Good skin turgor. ASSESSMENT: 1. Cholecystitis PLAN: 1. Discharge diet includes low-fat diet. 2. Follow up with her operating surgeon as outpatient. 3. Discharge home today Objective - Vital Signs Vital signs: Vital Signs Temp 98.6 F 08/15/18 12:00 Pulse 69 08/15/18 12:00 Resp 16 08/15/18 12:00 BP 116/71 08/15/18 12:00 Pulse Ox 98 08/15/18 12:00 Intake & Output 08/14/18 08/15/18 08/15/18 18:59 06:59 18:59 Intake Total 600 Output Total 1305 Balance -705 Weight 124.7 kg Intake: IV 600 Output: Urine 1300 Estimated Blood Loss 5 Other: Voiding Method Toilet Toilet Toilet # Voids 3 1 - Labs CBC & Chem 7: 08/11/18 23:04 08/14/18 11:45 Labs: Microbiology - Last 24 Hours (Table) 08/12/18 04:05 Blood Culture - Preliminary Blood No Growth after 72 hours
--- NOTE | 2018-08-15 17:52 | P.PN ---
Subjective Progress Note Date: 08/14/18 Principal diagnosis: Possible choledocholithiasis and ascending cholangitis 22-year-old pleasant female came in to hospital with right upper quadrant pain found to have elevated liver enzymes and was high suspicion for choledocholithiasis underwent ERCP although failed cannulation presently on Unasyn. Patient also underwent MRCP which showed dilated intrahepatic bile ducts. Patient is scheduled for cholecystectomy tomorrow. There is no clear evidence of cholecystitis at this time patient doesn't have any fever leukocytosis her nausea improved patient is on clear liquid diet at this time. Patient's abdominal pain significantly improved no upper quadrant tenderness Toledo's sign is negative at this time. Objective - Vital Signs Vital signs: Vital Signs Temp 97.6 F 08/14/18 09:45 Pulse 46 L 08/14/18 12:00 Resp 18 08/14/18 12:00 BP 127/80 08/14/18 11:45 Pulse Ox 97 08/14/18 09:45 Intake & Output 08/13/18 08/14/18 08/14/18 18:59 06:59 18:59 Intake Total 400 475 600 Output Total 655 Balance 400 475 -55 Intake: IV 75 600 Oral 400 400 Output: Urine 650 Estimated Blood Loss 5 Other: # Voids 2 1 - Exam GENERAL: The patient is alert and oriented x3, not in any acute distress. Well developed, well nourished. Obese HEENT: Pupils are round and equally reacting to light. EOMI. No scleral icterus. No conjunctival pallor. Normocephalic, atraumatic. No pharyngeal erythema. No thyromegaly. CARDIOVASCULAR: S1 and S2 present. No murmurs, rubs, or gallops. PULMONARY: Chest is clear to auscultation, no wheezing or crackles. ABDOMEN: Soft, nontender, nondistended, normoactive bowel sounds. No palpable organomegaly. MUSCULOSKELETAL: No joint swelling or deformity. EXTREMITIES: No cyanosis, clubbing, or pedal edema. NEUROLOGICAL: Gross neurological examination did not reveal any focal deficits. SKIN: No rashes. - Labs CBC & Chem 7: 08/11/18 23:04 08/14/18 11:45 Labs: Abnormal Lab Results - Last 24 Hours (Table) 08/14/18 Range/Units 11:45 AST 45 H (14-36) U/L ALT 175 H (9-52) U/L Alkaline Phosphatase 205 H (38-126) U/L Microbiology - Last 24 Hours (Table) 08/12/18 04:05 Blood Culture - Preliminary Blood No Growth after 48 hours Assessment and Plan Assessment: -Choledocholithiasis, - low possibility of ascending cholangitis - patient is on Unasyn which is appropriate at this time which will be continued -Cholelithiasis: Patient will undergo cholecystectomy today - Toradol will valid to her pain medications and avoid opiates. And the patient was started on Pepcid as well -Obesity: Counseling was provided -DVT prophylaxis; subcu Lovenox CODE STATUS: full code Time with Patient: Greater than 30
--- NOTE | 2018-08-17 15:26 | CONS ---
CONSULTATION DATE OF SERVICE: August 13, 2018. OPHTHALMOLOGY CONSULTATION REPORT: CHIEF COMPLAINT: Foreign body sensation left eye. HISTORY OF PRESENT ILLNESS: Alicia is a 22-year-old female who recently had an ERCP who complains of foreign body sensation left eye. The symptoms began suddenly upon awakening from the procedure. There are no associated visual symptoms. The foreign body sensation has decreased over the last day or 2. There are no exacerbating symptoms. REVIEW OF SYSTEMS: Abdominal pain and nausea. Otherwise negative. PAST MEDICAL HISTORY: Asthma. PAST OCULAR HISTORY: None. PAST SURGICAL HISTORY: ERCP. SOCIAL HISTORY: Never smoked tobacco. FAMILY HISTORY: Noncontributory. HOME MEDICATIONS: None. ALLERGIES: POLLEN, DUST AND PET HAIR. OPHTHALMIC EXAM: Visual acuity is 20/40 at near in the right eye and in the left eye without correction. Pupils are equal, round, and reactive to light and accommodation. There is no afferent pupillary defect. Extraocular movements are in both eyes. Confrontation: Visual franklin full in both eyes. Anterior examination reveals a clear cornea in the right eye and slight irregularity on the corneal surface in the left eye. The anterior chamber is quiet and deep. The remainder of the ophthalmic exam including the lens and posterior chamber is within normal limits in both eyes. Intra-ocular pressure is soft to palpation, both eyes. ASSESSMENT AND PLAN: 1. Corneal abrasion, left eye. I recommend using erythromycin ointment 3 times daily to the left eye for the next 5 days. I also recommend evaluation after discharge for reevaluation in the office. 2. Blepharitis, bilateral. I recommend observation at this time. Thank you for allowing me to participate in this patient's care. I recommend re- evaluation as an outpatient to ensure that her cornea heals properly. Sincerely, MMSLOANL / IJN: [id number] /
== END 2018-08-15 15:48 | disposition home or self-care (01) ==
LOC: EC 21:28 → 1SOBS 08-12 03:40
PROVIDERS: ADMIT Surgery; ATTEND Surgery
DX: K80.10 Calculus of gallbladder with chronic cholecystitis without obstruction (principal); K76.0 Fatty (change of) liver, not elsewhere classified; E66.01 Morbid (severe) obesity due to excess calories; Z68.42 Body mass index [BMI] 45.0-49.9, adult; H01.006 Unspecified blepharitis left eye, unspecified eyelid; H01.003 Unspecified blepharitis right eye, unspecified eyelid; J45.909 Unspecified asthma, uncomplicated; S05.02XA Injury of conjunctiva and corneal abrasion without foreign body, left eye, initial encounter; Z71.3 Dietary counseling and surveillance
CPT/HCPCS: 96361; 96374; 96375; 99285; 36415; 81025 ×2; 88304; 80053 ×3; 80076; 80074; 82150; 83690; 85025; 81003; 87040; 74330; 76705; 74181; 43235; G0378 ×4; J2250 ×2; J0330 ×2; J2270; J1200; J1610; J2550; J2710; J2765; J2405 ×3; J2001 ×2; J1650; J3010 ×2; J1885 ×3; J1170; J0295 ×4; J1100; J2370; J2704 ×2; Q9967

== ENCOUNTER → 2018-12-10 | Outpatient (CLI) | payer OTHER | END | disposition home or self-care (01) | LOC: LABWHC1 08:47 | PROVIDERS: ATTEND Obstetrics & Gynecology | DX: N92.6 Irregular menstruation, unspecified (principal) | CPT/HCPCS: 36415; 84702 ==

== ENCOUNTER 2019-01-12 11:13 | Emergency (ER) | payer OTHER ==
[2019-01-12] MEDS ORDERED: ONDANSETRON 4 MG/2 ML VIAL IVP STA (11:41)
[2019-01-12] MEDS ORDERED: SODIUM CHLORIDE 0.9% 1,000 ML IV ONE (11:41)
--- NOTE | 2019-01-12 11:43 | ED ---
Headache HPI - General Chief Complaint: Headache Stated Complaint: Nausea/dizzy Time Seen by Provider: 01/12/19 11:28 Source: patient, RN notes reviewed Mode of arrival: ambulatory Limitations: no limitations - History of Present Illness Initial Comments: 23-year-old female presents emergency Department with chief complaint of intermittent headaches, nausea. Patient states that the headaches are not associated with nausea that she has no current headache at this time though she's had 3 headaches and last few days which is different for her. She states is very mild headaches not the worse headache of her life. Patient denies any fever, chills, chest pain or shortness of breath. She has some upset stomach feeling states that she's is nauseated no recent vomiting. No diarrhea no constipation. Patient has benign past medical history denies any sick contacts. Patient is unsure if she is or not. Patient last mental cycle was one month ago. - Related Data Previous Rx's Medication Instructions Recorded Ondansetron Odt [Zofran Odt] 4 mg PO Q8HR PRN #10 tab 01/12/19 Allergies Allergy/AdvReac Type Severity Reaction Status Date / Time pollen extracts Allergy Swelling Verified 01/12/19 11:49 dust Allergy Swelling Uncoded 01/12/19 11:49 pet hair Allergy Anaphylaxis Uncoded 01/12/19 11:49 Review of Systems ROS Statement: Those systems with pertinent positive or pertinent negative responses have been documented in the HPI. ROS Other: All systems not noted in ROS Statement are negative. Past Medical History Past Medical History: Asthma Additional Past Medical History / Comment(s): Hx concussion, elective , History of Any Multi-Drug Resistant Organisms: None Reported Past Surgical History: No Surgical Hx Reported, Cholecystectomy Past Anesthesia/Blood Transfusion Reactions: No Reported Reaction Past Psychological History: Anxiety, Depression Smoking Status: Never smoker - Past Family History Mother Family Medical History: No Reported History Additional Family Medical History / Comment(s): Bipolar, Schizopphrenic, ADHD. Brother(s) Family Medical History: No Reported History Additional Family Medical History / Comment(s): Schizophrenic General Exam General appearance: alert, in no apparent distress Head exam: Present: atraumatic, normocephalic, normal inspection Eye exam: Present: normal appearance, PERRL, EOMI. Absent: scleral icterus, conjunctival injection, periorbital swelling ENT exam: Present: normal exam, normal oropharynx, mucous membranes moist, TM's normal bilaterally Neck exam: Present: normal inspection. Absent: tenderness, meningismus, lymphadenopathy Respiratory exam: Present: normal lung sounds bilaterally. Absent: respiratory distress, wheezes, rales, rhonchi, stridor Cardiovascular Exam: Present: regular rate, normal rhythm, normal heart sounds. Absent: systolic murmur, diastolic murmur, rubs, gallop, clicks GI/Abdominal exam: Present: soft, normal bowel sounds. Absent: distended, tenderness, guarding, rebound, rigid Back exam: Absent: CVA tenderness (R), CVA tenderness (L) Neurological exam: Present: alert, oriented X3, CN II-XII intact, reflexes normal, other (Finger to nose intact). Absent: motor sensory deficit Skin exam: Present: warm, dry, intact, normal color. Absent: rash Course Vital Signs 01/12/19 11:22 Temperature 98.2 F Pulse Rate 102 H Respiratory 18 Rate Blood Pressure 116/73 O2 Sat by Pulse 99 Oximetry Medical Decision Making - Medical Decision Making 23-year-old female presented for generalized nausea, intermittent headaches, concern for possible . Patient labwork, urinalysis unremarkable patient hCG is negative. Patient is improved after IV fluids and Zofran. Patient will be discharged with Zofran return parameters were discussed. - Lab Data Result diagrams: 01/12/19 11:50 01/12/19 11:50 Lab Results 01/12/19 01/12/19 01/12/19 Range/Units 11:50 11:50 12:15 WBC 8.7 (3.8-10.6) k/uL RBC 4.46 (3.80-5.40) m/uL Hgb 11.5 (11.4-16.0) gm/dL Hct 36.4 (34.0-46.0) % MCV 81.5 (80.0-100.0) fL MCH 25.7 (25.0-35.0) pg MCHC 31.6 (31.0-37.0) g/dL RDW 14.9 (11.5-15.5) % Plt Count 305 (150-450) k/uL Neutrophils % 64 % Lymphocytes % 28 % Monocytes % 4 % Eosinophils % 3 % Basophils % 1 % Neutrophils # 5.6 (1.3-7.7) k/uL Lymphocytes # 2.4 (1.0-4.8) k/uL Monocytes # 0.3 (0-1.0) k/uL Eosinophils # 0.3 (0-0.7) k/uL Basophils # 0.0 (0-0.2) k/uL Sodium 139 (137-145) mmol/L Potassium 3.8 (3.5-5.1) mmol/L Chloride 105 (98-107) mmol/L Carbon Dioxide 26 (22-30) mmol/L Anion Gap 8 mmol/L BUN 12 (7-17) mg/dL Creatinine 0.74 (0.52-1.04) mg/dL Est GFR (CKD-EPI)AfAm >90 (>60 ml/min/1.73 sqM) Est GFR (CKD-EPI)NonAf >90 (>60 ml/min/1.73 sqM) Glucose 98 (74-99) mg/dL Calcium 9.7 (8.4-10.2) mg/dL Total Bilirubin 0.5 (0.2-1.3) mg/dL AST 12 L (14-36) U/L ALT 23 (9-52) U/L Alkaline Phosphatase 77 (38-126) U/L Total Protein 7.3 (6.3-8.2) g/dL Albumin 4.3 (3.5-5.0) g/dL Urine Color Urine Appearance (Clear) Urine pH (5.0-8.0) Ur Specific [place] (1.001-1.035) Urine Protein (Negative) Urine Glucose (UA) (Negative) Urine Ketones (Negative) Urine Blood (Negative) Urine Nitrite (Negative) Urine Bilirubin (Negative) Urine Urobilinogen (<2.0) mg/dL Ur Leukocyte Esterase (Negative) Urine RBC (0-5) /hpf Urine WBC (0-5) /hpf Ur Squamous Epith Cells (0-4) /hpf Urine Bacteria (None) /hpf Urine HCG, Qual Not Detected (Not Detectd) 01/12/19 Range/Units 12:15 WBC (3.8-10.6) k/uL RBC (3.80-5.40) m/uL Hgb (11.4-16.0) gm/dL Hct (34.0-46.0) % MCV (80.0-100.0) fL MCH (25.0-35.0) pg MCHC (31.0-37.0) g/dL RDW (11.5-15.5) % Plt Count (150-450) k/uL Neutrophils % % Lymphocytes % % Monocytes % % Eosinophils % % Basophils % % Neutrophils # (1.3-7.7) k/uL Lymphocytes # (1.0-4.8) k/uL Monocytes # (0-1.0) k/uL Eosinophils # (0-0.7) k/uL Basophils # (0-0.2) k/uL Sodium (137-145) mmol/L Potassium (3.5-5.1) mmol/L Chloride (98-107) mmol/L Carbon Dioxide (22-30) mmol/L Anion Gap mmol/L BUN (7-17) mg/dL Creatinine (0.52-1.04) mg/dL Est GFR (CKD-EPI)AfAm (>60 ml/min/1.73 sqM) Est GFR (CKD-EPI)NonAf (>60 ml/min/1.73 sqM) Glucose (74-99) mg/dL Calcium (8.4-10.2) mg/dL Total Bilirubin (0.2-1.3) mg/dL AST (14-36) U/L ALT (9-52) U/L Alkaline Phosphatase (38-126) U/L Total Protein (6.3-8.2) g/dL Albumin (3.5-5.0) g/dL Urine Color Yellow Urine Appearance Clear (Clear) Urine pH 6.5 (5.0-8.0) Ur Specific [place] 1.028 (1.001-1.035) Urine Protein Trace H (Negative) Urine Glucose (UA) Negative (Negative) Urine Ketones Negative (Negative) Urine Blood Negative (Negative) Urine Nitrite Negative (Negative) Urine Bilirubin Negative (Negative) Urine Urobilinogen 2.0 (<2.0) mg/dL Ur Leukocyte Esterase Moderate H (Negative) Urine RBC 3 (0-5) /hpf Urine WBC 9 H (0-5) /hpf Ur Squamous Epith Cells 6 H (0-4) /hpf Urine Bacteria Rare H (None) /hpf Urine HCG, Qual (Not Detectd) Disposition Clinical Impression: Nausea, Intermittent headache Disposition: HOME SELF-CARE Condition: Stable Instructions (If sedation given, give patient instructions): Acute Headache (ED) Additional Instructions: Please return to the Emergency Department if symptoms worsen or any other concerns. Prescriptions: Ondansetron Odt [Zofran Odt] 4 mg PO Q8HR PRN #10 tab PRN Reason: Nausea Is patient prescribed a controlled substance at d/c from ED?: No Referrals: None,Stated [Primary Care Provider] - 1-2 days Time of Disposition: 13:04
[2019-01-12 12:20] LABS: Basophils % (A) 1 %; Eosinophils # (A) 0.3 k/uL (0-0.7); Eosinophils % (A) 3 %; HCT 36.4 % (34.0-46.0); HGB 11.5 gm/dL (11.4-16.0); Lymphocytes # (A) 2.4 k/uL (1.0-4.8); Lymphocytes % (A) 28 %; MCH 25.7 pg (25.0-35.0); MCHC 31.6 g/dL (31.0-37.0); MCV 81.5 fL (80.0-100.0); Mean Platelet Volume 7.4; Monocytes # (A) 0.3 k/uL (0-1.0); Monocytes % (A) 4 %; Neutrophils # (A) 5.6 k/uL (1.3-7.7); Neutrophils % (A) 64 %; Platelet Count 305 k/uL (150-450); RBC 4.46 m/uL (3.80-5.40); RDW 14.9 % (11.5-15.5); WBC 8.7 k/uL (3.8-10.6)
[2019-01-12 12:25] LABS: ALT 23 U/L (9-52); AST 12 U/L (14-36); Albumin 4.3 g/dL (3.5-5.0); Alkaline Phosphatase 77 U/L (38-126); Anion Gap 8 mmol/L; Blood Urea Nitrogen 12 mg/dL (7-17); Calcium 9.7 mg/dL (8.4-10.2); Carbon Dioxide 26 mmol/L (22-30); Chloride 105 mmol/L (98-107); Glucose 98 mg/dL (74-99); Potassium 3.8 mmol/L (3.5-5.1); Sodium 139 mmol/L (137-145); Total Bilirubin 0.5 mg/dL (0.2-1.3); Total Protein 7.3 g/dL (6.3-8.2)
[2019-01-12 12:28] LABS: Appearance,Urine Clear (Clear); Bacteria,Urine Rare /hpf; Bilirubin,Urine Negative (Negative); Blood,Urine Negative (Negative); Color,Urine Yellow; Glucose,Urine (UA) Negative (Negative); Ketones,Urine Negative (Negative); Leukocyte Esterase,Urine Moderate (Negative); Nitrite,Urine Negative (Negative); PH, Urine 6.5 (5.0-8.0); Protein,Urine Trace (Negative); RBC,Urine 3 /hpf (0-5); Specific Gravity,Urine 1.028 (1.001-1.035); Squamous Epithelial Cell,Urine 6 /hpf (0-4)
[2019-01-12 13:08] VITALS: BP 111/64; PULSE 78; RESP 16; TEMP 98
== END 2019-01-12 13:18 ==
LOC: EC 11:13
DX: R51 Headache (principal); R11.0 Nausea; R42 Dizziness and giddiness; K30 Functional dyspepsia; Z90.49 Acquired absence of other specified parts of digestive tract; Z91.048 Other nonmedicinal substance allergy status
CPT/HCPCS: 99284; 96374; 96361; 36415; 80053; 85025; 81001; 81025; J2405